=== PATIENT | male | born 1970 | race Caucasian/White ===

== ENCOUNTER 2023-06-17 21:02 | Emergency (ER) | payer BC, SELFPAY ==
[2023-06-17 21:04] VITALS: BP 144/89; BMI 38.2
[2023-06-17 21:05] VITALS: BP 144/89
[2023-06-17 21:14] LABS: Glucose - Point of Care 243 mg/dl (70-99)
[2023-06-17 21:26] LABS: % Basophils 0.1 % (0-2); % Eosinophils 0.4 % (0-6); % Immature Granulocytes 0.7 % (0-0.5); % Lymphocytes 14.9 % (20.5-51.1); % Neutrophils 77.9 % (42.2-75.2); Absolute Immature Granulocytes 0.1 10^3/uL (0-0.05); Absolute Lymphocytes 1.1 10^3/uL (1.2-3.4); Absolute Monocytes 0.4 10^3/uL (0.1-0.6); Absolute Neutrophils 5.7 10^3/uL (1.4-6.5); Hematocrit 28.5 % (39.0-52.0); Hemoglobin 9.8 g/dL (13.0-18.0); Mean Corp Hgb Conc. 34.4 g/dL (33.0-37.0); Mean Corpuscular Hgb 31.2 pg (27.0-31.0); Mean Corpuscular Volume 90.8 fL (80.0-94.0); Mean Platelet Volume 9.6 fL (7.4-10.4); Nucleated Red Blood Cells % 0 % (-); Platelet Count 131 10^3/uL (130-400); Red Blood Cell Count 3.14 10^6/uL (4.70-6.10); Red Cell Dist. Width 13.6 % (11.5-14.5); White Blood Cell Count 7.3 10^3/uL (4.8-10.8)
[2023-06-17 21:39] LABS: ALT (SGPT) < 10 U/L (0-50); AST (SGOT) 24 U/L (17-59); Albumin 2.9 g/dl (3.5-5.0); Alkaline Phosphatase 140 U/L (38-126); Blood Urea Nitrogen 55 mg/dl (9-20); Calcium 7.9 mg/dl (8.4-10.2); Carbon Dioxide 23 mmol/L (22-30); Chloride 101 mmol/L (98-107); Estimated Creatinine Clearance 87 ml/min; Glucose 228 mg/dl (70-99); Potassium 4.9 mmol/L (3.5-5.1); Sodium 129 mmol/L (135-145); Total Bilirubin 0.6 mg/dl (0.2-1.3); Total Protein 6.5 g/dl (6.3-8.2); eGFR > 60.00
[2023-06-17 22:00] VITALS: BP 140/91
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
--- NOTE | 2023-06-17 22:53 | VATNOTE ---
Called by ER to assess Rt. SL PICC, placed last week @ [facility], family unsure the date. Pt. is a resident @ [facility]. Rt. arm appears edematous, recommend US to r/o DVT. Picc redressed per protocol. Flushes easily, but no blood return. Staff
RN made aware. Will follow.
[2023-06-17 23:00] VITALS: BP 129/82
[2023-06-17 23:13] LABS: Urine Albumin 1+ (Neg - Trace); Urine Bilirubin Negative (Negative); Urine Character Clear (Clear); Urine Color Yellow; Urine Glucose Negative (Negative); Urine Ketone Negative (Negative); Urine Leukocyte Trace (Negative); Urine Nitrite Negative (Negative); Urine Occult Blood 2+ (Negative); Urine Urobilinogen Negative (Neg - 1+)
[2023-06-17 23:19] LABS: Urine Granular Cast 0-2 /LPF (0)
[2023-06-17 23:20] LABS: Urine Bacteria Many (Negative)
[2023-06-18 00:36] VITALS: BP 141/94
[2023-06-18 00:46] LABS: Glucose - Point of Care 164 mg/dl (70-99)
[2023-06-18 01:00] VITALS: BP 138/93
[2023-06-18 02:00] VITALS: BP 151/107
== END 2023-06-18 02:23 ==
LOC: EMR 21:02
PROVIDERS: EMERGENCY PHYSICIAN Emergency Medicine; FAMILY PHYSICIAN Family Medicine
DX: E11.649 Type 2 diabetes mellitus with hypoglycemia without coma (principal); R22.31 Localized swelling, mass and lump, right upper limb
CPT/HCPCS: 99285; 70450; 71045; 80053; 81003; 81015; 82962; 85025; 87086; 93005; 93971

== ENCOUNTER 2023-06-21 15:03 | Inpatient (IN) | payer BC, SELFPAY ==
[2023-06-21 09:35] VITALS: BP 136/84
--- NOTE | 2023-06-21 09:36 | ED.GENMED ---
History of Present Illness
General
Chief Complaint: Dizziness
Source: patient
Exam Limitations: none
Time Seen by Provider: 06/21/23 09:34
Nursing documentation reviewed up to this point in time: agreed with
History of Present Illness
History of Present Illness:
Patient is a 52-year-old male who presents from [facility] for dizziness. He reports he has been dizzy for the past 2 weeks. He describes this as feeling lightheaded/weak. Patient feels very tired and reports he has no energy
It is documented the patient has a history of CVA IDDM endocarditis. PICC line in place in his right arm.
Past History
Past History
ED Past Medical History: CVA, IDDM and Other (Endocarditis stroke diabetes hypertension)
Social History
Tobacco: Other
Alcohol: Other
Drug: Other
Personal: Other
Living: [facility]
Employment: Not employed
Review of Systems
Review of Systems
Allergies reviewed?: Yes
Other source history: family
All Other Systems: ROS reviewed and negative except as documented in HPI and ROS
Constitutional: Reports fatigue; Denies fever
Respiratory: Reports no symptoms; Denies trouble breathing
Cardiac: Reports no symptoms
ABD/GI: Reports no symptoms
: Reports no symptoms
Musculoskeletal: Reports no symptoms
Neurological: Reports dizzy; Denies headache, weakness or numbness
Psychiatric: Reports no symptoms
Phy Exam
General Physical Exam
General Presentation: no apparent distress
General age: appears stated age
General Skin: warm and dry
General Habitus: normal
General Mental: alert
General Hydration: appears well hydrated
Cardiovascular Exam
Cardiovascular Exam: regular rate/rhythm, no murmur and normal peripheral pulses
Pulmonary Exam
Pulmonary Exam: lungs clear and no respiratory distress
Neurological Exam
Neurological Exam: alert, oriented x3 and other (right arm is weak ( recent stroke ) right leg appears only minimally weak )
Musculoskeletal Exam
Musculoskeletal Exam: full ROM
Skin Exam
Skin Exam: normal color and warm/dry
Psychiatric Exam
Psychiatric Exam: normal mood/affect
Course
Orders/Labs/Results
Orders:
Orders
06/21/23 09:34
Electrocardiogram (*1) Urgent
Reason for Study: Vertigo / Dizzy
EKG- Treatment ONCE
06/21/23 09:43
CMP [Comprehensive Metabolic Panel] Urgent
Complete Blood Count/With Diff Urgent
Troponin I Urgent
06/21/23 10:28
0.9% Sodium Chloride 1000 ml [Nss] 1,000 ml IV BOLUS
06/21/23 10:59
UA Reflex to Culture [Urinalysis Reflex To Culture] Urgent
Chest X-ray Portable [CR Chest Portable - 1 View] Urgent
Comment:
Reason For Exam: line placement
Reason Study Needs to be Portable: Other
06/21/23 14:39
Admit/Transfer Patient As Directed
Co-Sign Provider:
Level of Care: Inpatient admission
Assign to:: Medical/Surgical
Physician / Group: Bon
Diagnosis: Weakness,lighteadedness and anemia/azotemia
Reason for Hospitalization: See progress note
Expected length of stay greater than two midnights?: Yes
ELOS- Estimated Length of Stay in days: 3
I certify the patient meets the requirements for IP care: Yes
06/21/23 14:41
Code Status As Directed
Resuscitation Status: Full Code
Abnormal Lab Results
06/21/23
09:43
WBC 4.6 L 10^3/uL
(4.8-10.8)
RBC 2.68 L 10^6/uL
(4.70-6.10)
Hgb 8.5 L g/dL
(13.0-18.0)
Hct 24.9 L %
(39.0-52.0)
MCH 31.7 H pg
(27.0-31.0)
Absolute Lymphs (auto) 0.7 L 10^3/uL
(1.2-3.4)
Immature Gran % 0.6 H %
(0-0.5)
Neutrophils % 75.7 H %
(42.2-75.2)
Lymphocytes % 15.7 L %
(20.5-51.1)
Sodium 130 L mmol/L
(135-145)
Carbon Dioxide 21 L mmol/L
(22-30)
BUN 53 H mg/dl
(9-20)
Glucose 164 H mg/dl
(70-99)
Calcium 8.0 L mg/dl
(8.4-10.2)
Alkaline Phosphatase 136 H U/L
(38-126)
Total Protein 6.0 L g/dl
(6.3-8.2)
Albumin 2.6 L g/dl
(3.5-5.0)
06/21/23 09:43
06/21/23 09:43
Vital Signs
Initial and Last Documented VS:
Initial Vital Signs
Temp Pulse Resp BP Pulse Ox
97.6 F 78 16 136/84 97
06/21/23 09:35 06/21/23 09:35 06/21/23 09:35 06/21/23 09:35 06/21/23 09:35
Last Documented Vital Signs
Temp Pulse Resp BP Pulse Ox
97.6 F 70 17 131/89 98
06/21/23 09:35 06/21/23 11:30 06/21/23 11:30 06/21/23 10:05 06/21/23 10:05
MDM/Problems Addressed
Differential Diagnosis Includes:
Not limited to electrolyte abnormality dehydration anemia
MDM/Problems Addressed:
Patient is a 52-year-old male from [facility] with recent history of strokes, endocarditis complaining of weakness. Family at bedside reports patient is getting progressively weaker reports staff finally got him out of bed yesterday. Patient
complains of a total weakness. He denies any recent fever or chills. Denies any chest pain shortness of breath. Patient has a low sodium of 130 and elevated BUN of 53 normal creatinine 1.2. Calcium low at 8.0; hemoglobin low at 8.5 with low
hematocrit 24.9. It does not appear from records that patient is on blood thinners, brown stool rectal exam heme-negative.
Will obtain urine and chest x-ray for confirmation of PICC line. Patient will require admission for weakness anemia hyponatremia hypocalcemia
*Critical Care Note
Total Time (30-74mins, 75-104mins- exclusive of procedures): Not Applicable
ED Attending Note
-
Portions of this chart may have been created with voice recognition software.� Occasional wrong word or��sound alike� substitutions may have occurred due to the inherent limitations of voice recognition software.
Discharge Plan
Departure
Patient Disposition: Admit
Date of Disposition: 06/21/23
Time of Disposition: 11:03
Admit to: Med/Surg
Admit to doctor: hospitalist
Presentation/result/management discussed w/ accepting MD/DO: Hospitalist
Patient with high blood pressure during this ER visit?: Yes
Condition: Fair
Covid-19: Not Applicable
Discharge Problem:
Anemia, Weakness, Acute hyponatremia, hypocalcemia
Interventions
Interventions:
*Risk Screen - Suicide Last Done: 06/21/23 09:35
*General Assessment Last Done: 06/21/23 09:35
*Neglect/Abuse Screening Last Done: 06/21/23 09:35
*ED COVID-19 Vaccine History Last Done: 06/21/23 09:35
ED- Neurological Assessment Last Done: 06/21/23 09:35
ED- Cardiac Assessment Last Done: 06/21/23 10:58
[2023-06-21 09:53] LABS: % Basophils 0.2 % (0-2); % Eosinophils 1.1 % (0-6); % Immature Granulocytes 0.6 % (0-0.5); % Lymphocytes 15.7 % (20.5-51.1); % Monocytes 6.7 % (1.7-9.3); % Neutrophils 75.7 % (42.2-75.2); Absolute Eosinophils 0.1 10^3/uL (0-0.7); Absolute Lymphocytes 0.7 10^3/uL (1.2-3.4); Absolute Monocytes 0.3 10^3/uL (0.1-0.6); Absolute Neutrophils 3.5 10^3/uL (1.4-6.5); Hematocrit 24.9 % (39.0-52.0); Hemoglobin 8.5 g/dL (13.0-18.0); Mean Corp Hgb Conc. 34.1 g/dL (33.0-37.0); Mean Corpuscular Hgb 31.7 pg (27.0-31.0); Mean Corpuscular Volume 92.9 fL (80.0-94.0); Mean Platelet Volume 9.2 fL (7.4-10.4); Nucleated Red Blood Cells % 0 % (-); Platelet Count 137 10^3/uL (130-400); Red Blood Cell Count 2.68 10^6/uL (4.70-6.10); Red Cell Dist. Width 13.5 % (11.5-14.5); White Blood Cell Count 4.6 10^3/uL (4.8-10.8)
[2023-06-21 10:05] VITALS: BP 131/89
[2023-06-21 10:07] LABS: ALT (SGPT) 10 U/L (0-50); AST (SGOT) 22 U/L (17-59); Albumin 2.6 g/dl (3.5-5.0); Alkaline Phosphatase 136 U/L (38-126); Blood Urea Nitrogen 53 mg/dl (9-20); Carbon Dioxide 21 mmol/L (22-30); Chloride 104 mmol/L (98-107); Glucose 164 mg/dl (70-99); Sodium 130 mmol/L (135-145); Total Bilirubin 0.5 mg/dl (0.2-1.3); eGFR > 60.00
[2023-06-21 10:18] LABS: Troponin I 0.027 ng/ml
[2023-06-21] MEDS: NSS 1000 IV ×2 (11:49→16:40)
--- NOTE | 2023-06-21 11:57 | PHANOTE ---
contacted [facility] [phone] for medication list for patient at 11:58
--- NOTE | 2023-06-21 14:47 | HPS.HSE ---
Family Physician
-
Family Physician: Fahad Perdomo
Chief Complaint
-
Weakness, lightheadedness, tiredness
History of Present Illness
52-year-old unfortunate gentleman recently had a infective endocarditis and a secondary stroke leaving him with right-sided weakness. This was 2 and a weeks ago. He was treated at [facility]. He was discharged to rehab past
Sunday.
Ever since discharge he has been progressively getting weaker. He is fatigued. He is also having dizziness especially when he gets up. He is not able to function and participate with PT so he came in here.
He was assisted to the bathroom
For 25 minutes feeling weak and he could not get up and he felt dizzy when he got up in a retirement.
Apparently also tried to get up by himself and he fell beside his bed and could not get up for 45 minutes in the rehab.
The mother also states he has been having loose stools.
Patient denies any nausea or vomiting. No fever or chills. He just feels fatigued. He feels achy everywhere. He has low back pain.
From stroke standpoint there is improvement in the strength in both the right arm and the right leg.
Medical History
Past Medical History
Past Medical History: Reports CVA (Right-sided weakness), HTN, IDDM and Other (Infective endocarditis)
Past Surgical History: Reports None
Social History
Tobacco: Non-smoker
Alcohol: None
Drug: None
Personal:
Living: [facility]hab currently)
Family History
Family History: Not pertinent
Allergies / Home Medications
Allergies reflects when Allergies were last updated in [facility].
Home Medications with original date entered in [facility]
Allergy/Medication List:
Allergies
Allergy/AdvReac Type Severity Reaction Status Date / Time
No Known Allergies Allergy Unverified 06/17/23 21:20
Home Medications
Saccharomyces boulardii 250 mg capsule (Probiotic (S.boulardii)) 250 mg PO TID 06/21/23
acetaminophen 325 mg tablet (Tylenol) 650 mg PO Q6H PRN mild pain/temp>100 06/21/23
acetaminophen 500 mg tablet (Tylenol Extra Strength) 1,000 mg PO Q6H PRN mild pain 06/21/23
bisacodyl 10 mg rectal suppository 10 mg CA DAILY PRN if no results for MOM 06/21/23
carvedilol 6.25 mg tablet 6.25 mg PO BID 06/21/23
cefazolin 2 gram/100 mL in 0.9 % sodium chloride intravenous solution 100 ml IV Q8H 06/21/23
heparin lock flush (porcine) 10 unit/mL intravenous solution 50 unit IV .SEE BELOW 06/21/23
insulin glargine 100 unit/mL subcutaneous solution 25 unit SC DAILY 06/21/23
insulin lispro 100 unit/mL subcutaneous solution 5 unit SC AC 06/21/23
ipratropium 0.5 mg-albuterol 3 mg (2.5 mg base)/3 mL nebulization soln 3 ml inhalation R Q4HPRN PRN wheezing 06/21/23
lisinopril 10 mg tablet 10 mg PO DAILY 06/21/23
magnesium hydroxide 400 mg/5 mL oral suspension (Milk of Magnesia) 30 ml PO HSPRN PRN if no BM x 3 days 06/21/23
sodium chloride 0.9 % (flush) (Normal Saline Flush 0.9 % injection syringe) 10 ml IV .SEE BELOW 06/21/23
Review of Systems
-
A 12 point ROS was completed and negative except as noted: Yes
Physical Exam
Vital Signs
Vital Signs
Temp Pulse Resp BP Pulse Ox
97.6 F 70 17 131/89 98
06/21/23 09:35 06/21/23 11:30 06/21/23 11:30 06/21/23 10:05 06/21/23 10:05
Physical Exam
General: No Apparent Distress
Respiratory: Clear
Cardiac: S1/S2 and Regular Rhythm; No Tachycardia
GI: Soft, Non Tender, Non Distended, Normal Bowel Sounds and Other (Obese)
Neuro: AO x 3; No No Motor Deficits (Right upper extremity 4/5 on right lower extremity 4/5; left side upper and lower 5/5), Slurred Speech or Facial Droop
Psych: Calm; No Confused or Agitated
Laboratory Results
-
06/21/23 09:43
06/21/23 09:43
Laboratory Results
Total Bilirubin 0.5 mg/dl (0.2-1.3) 06/21/23 09:43
AST 22 U/L (17-59) 06/21/23 09:43
ALT 10 U/L (0-50) 06/21/23 09:43
Alkaline Phosphatase 136 U/L (38-126) H 06/21/23 09:43
Troponin I 0.027 ng/ml 06/21/23 09:43
Data Reviewed
-
Lab Data: Labs Reviewed by me
Impression/Plan
-
Weakness, fatigue and orthostatic dizziness-rule out fluid losses from diarrhea, rule out new anemia/bleeding, rule out related to infective endocarditis.
Start on IV fluids
Follow H&H
Check stools for blood, C. difficile, WBC
Check orthostatic blood pressure readings
PT OT eval
Check blood cultures and inflammatory markers
Elevated BUN noted-unclear if this is volume related or bleeding. Follow H&H and stool studies. Support with IV fluids and follow BUN closely.
Infective endocarditis-clinically no heart failure. Continue with his IV antibiotics.
Hyponatremia-concern more for volume depletion related. Check urine sodium and osmolality. Support with fluids and check BMP later today.
Diabetes mellitus type 2-continue with his insulin regimen and add a sliding scale insulin
Hypertension-continue with his home medication
Full code
[2023-06-21 16:34] VITALS: BP 148/95; BP 151/95; PULSE 77; PULSE 78
[2023-06-21 16:39] LABS: Glucose - Point of Care 134 mg/dl (70-99)
[2023-06-21] MEDS: NOVOLOG FLEXPEN 5 UNITS SC (17:19)
[2023-06-21] MEDS: FLORASTOR 250 MG PO ×2 (17:19→22:59)
[2023-06-21] MEDS: NOVOLOG FLEXPEN-LOW RESISTANCE SC (17:19)
[2023-06-21] MEDS: ANCEF 10 IV (17:20)
[2023-06-21 17:44] LABS: Hematocrit 25.1 % (39.0-52.0); Hemoglobin 8.6 g/dL (13.0-18.0)
[2023-06-21] MEDS: COREG 6.25 MG PO (22:59)
[2023-06-21] MEDS: TYLENOL 650 MG PO (22:59)
[2023-06-21 23:17] LABS: Blood Urea Nitrogen 53 mg/dl (9-20); Calcium 7.9 mg/dl (8.4-10.2); Carbon Dioxide 20 mmol/L (22-30); Chloride 102 mmol/L (98-107); Glucose 146 mg/dl (70-99); Potassium 4.7 mmol/L (3.5-5.1); Sodium 131 mmol/L (135-145); eGFR > 60.00
[2023-06-22] MEDS: ANCEF 10 IV ×3 (00:20→15:06)
[2023-06-22] MEDS: FLUSH (NSS) 2 FLUSH IV (00:23)
--- NOTE | 2023-06-22 01:00 | PTCARENOTE ---
pt is aaox3, hx stroke w/ right sided weakness. pt is oriented to room w/ call montoya in reach.
[2023-06-22 01:10] VITALS: BP 147/92; BMI 37.5
[2023-06-22] MEDS: NSS 1000 IV ×3 (01:25→23:17)
[2023-06-22 01:31] LABS: Hematocrit 24.1 % (39.0-52.0); Hemoglobin 8.1 g/dL (13.0-18.0); Mean Corp Hgb Conc. 33.6 g/dL (33.0-37.0); Mean Corpuscular Hgb 31.4 pg (27.0-31.0); Mean Corpuscular Volume 93.4 fL (80.0-94.0); Mean Platelet Volume 8.9 fL (7.4-10.4); Platelet Count 122 10^3/uL (130-400); Red Blood Cell Count 2.58 10^6/uL (4.70-6.10); Red Cell Dist. Width 13.4 % (11.5-14.5); White Blood Cell Count 4.9 10^3/uL (4.8-10.8)
[2023-06-22 04:17] LABS: Erythrocyte Sed Rate 139 mm/hour (0-20)
[2023-06-22 04:31] LABS: Urine Albumin Trace (Neg - Trace); Urine Bilirubin Negative (Negative); Urine Character Clear (Clear); Urine Color Yellow; Urine Glucose Negative (Negative); Urine Ketone Negative (Negative); Urine Leukocyte Trace (Negative); Urine Nitrite Negative (Negative); Urine Occult Blood 1+ (Negative); Urine Specific Gravity 1.015 (<1.030); Urine Urobilinogen Negative (Neg - 1+)
[2023-06-22 04:32] LABS: Osmolality Urine 336 mOsm/kg (300-900)
[2023-06-22 05:00] LABS: Urine Sodium 22 mmol/L (30-90)
[2023-06-22 05:28] VITALS: BMI 37.5
[2023-06-22 06:20] LABS: Urine Amorphous Seen; Urine Squamous Cell 16-20 /LPF (Few)
[2023-06-22 06:21] LABS: Urine Bacteria Moderate (Negative); Urine Yeast Few (Negative)
[2023-06-22 06:23] LABS: Urine Granular Cast 0-2 /LPF (0); Urine White Cell Cast 0-2 /LPF
[2023-06-22 07:23] VITALS: BP 151/94
[2023-06-22 08:17] LABS: Glucose - Point of Care 122 mg/dl (70-99)
[2023-06-22] MEDS: NOVOLOG FLEXPEN-LOW RESISTANCE SC (08:25)
[2023-06-22] MEDS: COREG 6.25 MG PO ×2 (08:46→21:02)
[2023-06-22] MEDS: ZESTRIL 10 MG PO (08:46)
[2023-06-22] MEDS: FLORASTOR 250 MG PO ×3 (08:46→21:02)
[2023-06-22] MEDS: LANTUS 0.25 UNITS SC (08:47)
[2023-06-22 08:53] LABS: Hematocrit 23.4 % (39.0-52.0)
[2023-06-22 09:10] VITALS: BP 151/94; BP 161/103; PULSE 76; PULSE 79
[2023-06-22] MEDS: NOVOLOG FLEXPEN 5 UNITS SC ×3 (09:52→16:33)
--- NOTE | 2023-06-22 10:56 | VATNOTE ---
Patient with RUE PICC that was placed at outside facility. B/l arms with pitting edema noted, but right > left. Discussed with PCN who is in agreement. TigerText sent to Dr. Crockett to make him aware; VAT recommends u/s to rule out clot.
[2023-06-22 11:42] LABS: Glucose - Point of Care 170 mg/dl (70-99)
[2023-06-22 12:00] LABS: Glycohemoglobin (HgbA1c) 11.3 % (4.0-5.6)
[2023-06-22] MEDS: NOVOLOG FLEXPEN-LOW RESISTANCE 1 UNITS SC ×2 (12:04→16:33)
[2023-06-22 15:00] VITALS: BP 162/96
--- NOTE | 2023-06-22 16:17 | W.PN.HOSP.TC ---
Today's Communication/Plan
-
Continue with IV fluids
Follow BUN tomorrow
Follow H&H
Assessment / Plan
Assessment / Plan
Weakness, fatigue and orthostatic dizziness-rule out fluid losses from diarrhea, rule out new anemia/bleeding, rule out related to infective endocarditis.
Improved symptoms with IV fluids. I would continue IV fluids today. He is heme-negative. No diarrhea. C. difficile negative. No WBCs seen in stools. Blood cultures repeat pending. No orthostatic drop in blood pressure so far noted.
Check PT OT eval.
If continued improvement with oral fluids I would start discharge plan.
Patient does not want go back to h his [place] [facility]. Case management to look continue place.
Elevated BUN noted-? volume related .� Urine lites noted. Follow BUN with IV fluid support.
Infective endocarditis-clinically no heart failure.� Continue with his IV antibiotics.
Hyponatremia-concern more for volume depletion related.� urine sodium suggest prerenal.� Support with fluids and check BMP later today.
Diabetes mellitus type 2-poor control with hemoglobin A1c 11.3 continue with his insulin regimen and add a sliding scale insulin. Blood sugars are better here.
Hypertension-continue with his home medication
Normocytic [id number]. Check iron studies.
Full code
Anticipated Discharge: 24 - 48 hours
Subjective/Interval History
-
Date of Service: June 22, 2023
He is feeling improved with IV fluids.
Objective Data
-
Labs:
Laboratory Results
06/22/23
07:46
Hgb 8.0 L
Hct 23.4 L
Vital Signs:
Vital Signs
Temp Pulse Resp BP Pulse Ox
98.3 F 90 16 162/96 98
06/22/23 15:00 06/22/23 15:00 06/22/23 15:00 06/22/23 15:00 06/22/23 15:00
I&O
06/21/23 06/22/23 06/23/23
06:59 06:59 06:59
Intake Total 2159
Output Total 300 / 300
Balance 1859
Review of Systems
-
Constitutional: Denies Fever
EENT: Denies Sore Throat
Respiratory: Denies Cough or Trouble Breathing
Cardiac: Denies Chest Pain
Abdomen/GI: Denies Abdominal Pain, Nausea, Vomiting or Diarrhea
Neuro: Denies Dizzy
Physical Exam
-
General: No Apparent Distress
HEENT: Moist Mucous Membranes
Respiratory: Clear to Auscultation
Cardiac: Regular Rhythm and S1/S2
GI: Soft
Neuro: AO x 3
Psych: Calm
Data Reviewed
-
Labs: Labs Reviewed by me
[2023-06-22 16:22] LABS: Glucose - Point of Care 164 mg/dl (70-99)
[2023-06-22] MEDS: TYLENOL 650 MG PO (18:40)
[2023-06-22 19:55] VITALS: BP 144/97
--- NOTE | 2023-06-22 20:00 | TRANSFER ---
Patient transferred from 2125 into room 337-2 via bed with all belongings accompanied by RN and family member.
[2023-06-22 21:37] LABS: Glucose - Point of Care 111 mg/dl (70-99)
[2023-06-22 23:20] VITALS: BP 119/66
--- NOTE | 2023-06-22 23:47 | PTCARENOTE ---
pt tx from around 1929. pt unable to ambulate, arrived in bed so no transfer necessary. VSS on arrival, NSS running @100ml/hr. no c/o of pain at this time. call montoya within reach, will monitor.
[2023-06-23] MEDS: ANCEF 10 IV ×4 (00:41→23:31)
[2023-06-23 05:07] LABS: Hematocrit 24.9 % (39.0-52.0); Hemoglobin 8.3 g/dL (13.0-18.0); Mean Corp Hgb Conc. 33.3 g/dL (33.0-37.0); Mean Corpuscular Hgb 31.2 pg (27.0-31.0); Mean Corpuscular Volume 93.6 fL (80.0-94.0); Mean Platelet Volume 8.9 fL (7.4-10.4); Platelet Count 144 10^3/uL (130-400); Red Blood Cell Count 2.66 10^6/uL (4.70-6.10); Red Cell Dist. Width 13.4 % (11.5-14.5); White Blood Cell Count 4.8 10^3/uL (4.8-10.8)
[2023-06-23 05:38] LABS: Blood Urea Nitrogen 41 mg/dl (9-20); Carbon Dioxide 21 mmol/L (22-30); Chloride 109 mmol/L (98-107); Estimated Creatinine Clearance 102 ml/min; Glucose 106 mg/dl (70-99); Potassium 4.8 mmol/L (3.5-5.1); Sodium 133 mmol/L (135-145); eGFR > 60.00
[2023-06-23] MEDS: COREG 6.25 MG PO ×2 (07:25→20:43)
[2023-06-23] MEDS: ZESTRIL 10 MG PO (07:25)
[2023-06-23] MEDS: FLORASTOR 250 MG PO ×3 (07:25→21:41)
[2023-06-23 07:35] VITALS: BP 170/109
[2023-06-23] MEDS: NSS 1000 IV (07:42)
[2023-06-23 07:44] LABS: Glucose - Point of Care 118 mg/dl (70-99)
[2023-06-23] MEDS: NOVOLOG FLEXPEN-LOW RESISTANCE SC ×2 (09:53→16:49)
[2023-06-23] MEDS: NOVOLOG FLEXPEN 5 UNITS SC ×3 (09:54→16:48)
[2023-06-23] MEDS: LANTUS 0.25 UNITS SC (09:57)
--- NOTE | 2023-06-23 10:19 | W.PN.HOSP.TC ---
Today's Communication/Plan
-
Follow US Rt UE
PT eval
DC planning
Assessment / Plan
Assessment / Plan
Weakness, fatigue and orthostatic dizziness-suspect fluid losses from diarrhea.
Improved symptoms with IV fluids. Hold further IV fluids. Oral intake adequate /Na much improved.
He is heme-negative. No diarrhea. C. difficile negative. No WBCs seen in stools. Blood cultures repeat neg. No orthostatic drop in blood pressure so far noted.
CW PT OT eval.
Elevated BUN noted-? volume related .� Urine lites noted. Improved BUN with IV fluid support.
Infective endocarditis-clinically no heart failure.� Continue with his IV antibiotics.
Hyponatremia-concern more for volume depletion related.� urine sodium suggest prerenal.� Improved
Diabetes mellitus type 2-poor control with hemoglobin A1c 11.3 continue with his insulin regimen and add a sliding scale insulin. Blood sugars are better here.
Hypertension-continue with his home medication
Normocytic [id number]. Check iron studies.
Rt UE swelling -rule out PICC associated DVT
Full code
DC planning once seen by PT
Anticipated Discharge: Today
Subjective/Interval History
-
Date of Service: June 23, 2023
Patient feeling much improved with IV fluids. He is very eager to work with PT.
Diarrhea has improved.
Tolerating diet.
Denies any pain in the right arm.
Objective Data
-
Labs:
Laboratory Results
06/23/23
04:53
WBC 4.8
Hgb 8.3 L
Hct 24.9 L
Plt Count 144
Sodium 133 L
Potassium 4.8
Chloride 109 H
Carbon Dioxide 21 L
BUN 41 H
Creatinine 1.1
Glucose 106 H
Calcium 8.0 L
Vital Signs:
Vital Signs
Temp Pulse Resp BP Pulse Ox
97.4 F 87 20 170/109 95
06/23/23 07:35 06/23/23 07:35 06/23/23 07:35 06/23/23 07:35 06/23/23 07:35
I&O
06/22/23 06/23/23 06/24/23
06:59 06:59 06:59
Intake Total 2160 / 2160 1140 / 1140
Output Total 300 / 300 800 / 800
Balance 1860 / 1860 340 / 340
Review of Systems
-
Constitutional: Denies Fever
EENT: Denies Sore Throat
Respiratory: Denies Cough or Trouble Breathing
Cardiac: Denies Chest Pain
Neuro: Denies Dizzy
Physical Exam
-
General: No Apparent Distress
HEENT: Moist Mucous Membranes
Respiratory: Clear to Auscultation
Cardiac: Regular Rhythm and S1/S2
GI: Soft
Musculoskeletal: Edema, Right Upper Extrem
Neuro: AO x 3; Negative No Motor Deficits (rt hemiparesis as prior)
Data Reviewed
-
Labs: Labs Reviewed by me
[2023-06-23 10:58] LABS: Reticulocyte Count 2.8 % (0.4-2.8)
[2023-06-23 11:40] VITALS: BP 147/97
[2023-06-23 12:04] VITALS: BP 148/100; BP 159/99
[2023-06-23 12:05] VITALS: BP 148/100; BP 159/99; BP 174/107; PULSE 82; O2SAT 98
[2023-06-23 12:33] LABS: Glucose - Point of Care 157 mg/dl (70-99)
[2023-06-23 12:35] LABS: Iron 46 ug/dl (49-181)
[2023-06-23] MEDS: NOVOLOG FLEXPEN-LOW RESISTANCE 1 UNITS SC (12:37)
[2023-06-23 12:45] LABS: Percent Saturation 18 % (20-50); Total Iron Binding Capacity 248 ug/dl (261-462)
--- NOTE | 2023-06-23 13:09 | CM ---
CM following re: discharge planning.
Reviewed pt's chart, met with pt and spoke to pt's mother to update on discharge plan progress.
Pt is a 52 year old male, admitted with primary dx of Weakness, fatigue and orthostatic dizziness.
Pt reports he lives with parents in a 3SH, 2 steps to enter and stayed on the first floor. Pt reports he ambulates with a walker at baseline. pt reports he has 3 children, from his spouse and spouse helps as needed. Pt reports he can stay
either with his parents and his spouse and a son.
Pt reports he went to [facility] this month and was discharged to [facility] for a short term rehab. Pt reports he will not come back to [facility] because he was not getting help he needs.
PT and OT evaluations noted - acute level of rehab recommended. CM discussed it with pt and his mother, [place] [facility] preferred. A referral to [place] [facility] made.
PT will need PM&R evaluation and a consult requested.
D/C plan: [place] [facility].
CM will follow with discharge plan updates as hospitalization progresses
[2023-06-23 15:45] VITALS: BP 157/96
[2023-06-23 16:46] LABS: Glucose - Point of Care 126 mg/dl (70-99)
[2023-06-23 21:49] LABS: Glucose - Point of Care 115 mg/dl (70-99)
[2023-06-23 23:00] VITALS: BP 159/99
[2023-06-23] MEDS: TYLENOL 650 MG PO (23:36)
[2023-06-24 00:37] VITALS: BP 159/99
[2023-06-24 07:00] VITALS: BP 134/87
[2023-06-24 08:13] LABS: Glucose - Point of Care 131 mg/dl (70-99)
[2023-06-24] MEDS: NOVOLOG FLEXPEN 5 UNITS SC ×3 (08:41→17:42)
[2023-06-24] MEDS: LANTUS 0.25 UNITS SC (08:42)
[2023-06-24] MEDS: NOVOLOG FLEXPEN-LOW RESISTANCE SC ×2 (08:42→12:32)
[2023-06-24] MEDS: FLORASTOR 250 MG PO ×3 (08:48→21:39)
[2023-06-24] MEDS: ANCEF 10 IV ×3 (08:48→23:30)
[2023-06-24] MEDS: ZESTRIL 10 MG PO (08:48)
[2023-06-24] MEDS: COREG 6.25 MG PO ×2 (08:48→21:39)
[2023-06-24 11:09] VITALS: BP 142/96; BP 175/106; PULSE 79; O2SAT 97
[2023-06-24 11:10] VITALS: BP 142/96; PULSE 81; O2SAT 97
[2023-06-24 12:12] LABS: Glucose - Point of Care 110 mg/dl (70-99)
--- NOTE | 2023-06-24 14:44 | W.PN.HOSP.TC ---
Today's Communication/Plan
-
Left shoulder xray
DC planning
Assessment / Plan
Assessment / Plan
Weakness, fatigue and orthostatic dizziness-suspect fluid losses from diarrhea.
Improved symptoms with IV fluids. Off of IV fluids . Oral intake adequate /Na much improved.
He is heme-negative. No diarrhea. C. difficile negative. No WBCs seen in stools. Blood cultures repeat neg. No orthostatic drop in blood pressure so far noted.
CW PT OT eval.
Elevated BUN noted-? volume related .� Urine lites noted. Improved BUN with IV fluid support.
Infective endocarditis-clinically no heart failure.� Continue with his IV antibiotics.
Hyponatremia-concern more for volume depletion related.� urine sodium suggest prerenal.� Improved
Diabetes mellitus type 2-poor control with hemoglobin A1c 11.3 continue with his insulin regimen and add a sliding scale insulin. Blood sugars are better here.
Hypertension-continue with his home medication
Normocytic [id number]-[id number]. Check iron studies.
Rt UE swelling -
US of arm shows
PICC line bandage obscures full visualization of the cephalic, brachial, basilic veins.
Stable occlusive thrombus in the forearm cephalic vein and antecubital fossa - since superficial veins, will hold on AC and repeat US in one week and AC if progressive
No other right upper extremity venous thrombus.
Left shoulder pain - check Xray
Full code
DC planning
Anticipated Discharge: Within 24 hours
Subjective/Interval History
-
Date of Service: June 24, 2023
Feeling improved from weakness and fatigue standpoint.
Today when she was working with PT he had left shoulder pain. He had a fall in the rehab but not sure if he had a direct impact to the shoulder.
Objective Data
-
Vital Signs:
Vital Signs
Temp Pulse Resp BP Pulse Ox
97.4 F 74 18 134/87 97
06/24/23 07:00 06/24/23 08:48 06/24/23 07:00 06/24/23 08:48 06/24/23 07:00
I&O
06/23/23 06/24/23 06/25/23
06:59 06:59 06:59
Intake Total 1140 / 1140 720 / 720 480 / 480
Output Total 800 / 800 875 / 875 525 / 525
Balance 340 / 340 -155 / -155 -45 / -45
Review of Systems
-
Constitutional: Denies Fever or Chills
EENT: Denies Sore Throat
Respiratory: Denies Cough or Trouble Breathing
Cardiac: Denies Chest Pain
Abdomen/GI: Denies Nausea, Vomiting, Diarrhea or Anorexia (Good appetite)
Neuro: Denies Dizzy
Physical Exam
-
HEENT: Moist Mucous Membranes
Respiratory: Clear to Auscultation
Cardiac: Regular Rhythm and S1/S2
GI: Soft
Neuro: AO x 3; Negative No Motor Deficits (Right hemiparesis as before)
[2023-06-24 15:00] VITALS: BP 150/96
[2023-06-24] MEDS: TYLENOL 650 MG PO ×2 (15:44→21:44)
[2023-06-24 17:17] LABS: Glucose - Point of Care 231 mg/dl (70-99)
[2023-06-24] MEDS: NOVOLOG FLEXPEN-LOW RESISTANCE 2 UNITS SC (17:43)
[2023-06-24 21:38] LABS: Glucose - Point of Care 196 mg/dl (70-99)
[2023-06-24 23:25] VITALS: BP 159/101
[2023-06-25 07:00] VITALS: BP 156/100
[2023-06-25 07:50] LABS: Glucose - Point of Care 103 mg/dl (70-99)
[2023-06-25] MEDS: LANTUS 0.25 UNITS SC (08:42)
[2023-06-25] MEDS: ANCEF 10 IV ×3 (08:43→23:34)
[2023-06-25] MEDS: NOVOLOG FLEXPEN 5 UNITS SC ×3 (08:43→18:12)
[2023-06-25] MEDS: NOVOLOG FLEXPEN-LOW RESISTANCE SC ×3 (08:43→18:12)
[2023-06-25] MEDS: FLORASTOR 250 MG PO (08:43)
[2023-06-25] MEDS: SENOKOT-S 1 TABLET PO (08:44)
[2023-06-25] MEDS: LIDOCAINE 4% PATCH 1 PATCH TOPICAL (08:44)
[2023-06-25] MEDS: COREG 6.25 MG PO ×2 (08:44→20:49)
[2023-06-25] MEDS: ZESTRIL 10 MG PO (08:44)
[2023-06-25] MEDS: MILK OF MAGNESIA 30 ML PO (08:44)
[2023-06-25 09:30] LABS: Blood Urea Nitrogen 38 mg/dl (9-20); Calcium 8.1 mg/dl (8.4-10.2); Carbon Dioxide 19 mmol/L (22-30); Chloride 104 mmol/L (98-107); Estimated Creatinine Clearance 112 ml/min; Glucose 158 mg/dl (70-99); Potassium 4.5 mmol/L (3.5-5.1); Sodium 134 mmol/L (135-145); eGFR > 60.00
--- NOTE | 2023-06-25 11:43 | W.PN.HOSP.TC ---
Addendum entered and electronically signed by Joey Granado MD 06/25/23 16:02:
updated spouse over the phone in complete details. Spouse frustrated with patient care Rudi received at previous hospital and at shelter facility prior to arrival here.
Original Note:
Today's Communication/Plan
-
PM&R eval
Bowel regimen
OOB/PT
Assessment / Plan
Assessment / Plan
Weakness, fatigue and orthostatic dizziness-suspect fluid losses from diarrhea.
Improved symptoms with IV fluids. Off of IV fluids . Oral intake adequate /Na much improved.
He is heme-negative. No diarrhea. C. difficile negative. No WBCs seen in stools. Blood cultures repeat neg.
CW PT OT eval- acute rehab
Na at 134.
Elevated BUN noted-? volume related .� Urine lites noted. Improved BUN with IV fluid support.
Infective endocarditis-clinically no heart failure.� Continue with his IV antibiotics.
Hyponatremia-concern more for volume depletion related.� urine sodium suggest prerenal.� Improved
Diabetes mellitus type 2-poor control with hemoglobin A1c 11.3 continue with his insulin regimen and add a sliding scale insulin. Blood sugars are better here. POC 103 am.
Constipation-bowel regimen added
Hypertension-continue with his home medication
Normocytic eyyfkh-fuye-nteryzpt. Hgb 8.3
Rt UE swelling -
US of arm shows
PICC line bandage obscures full visualization of the cephalic, brachial, basilic veins.
Stable occlusive thrombus in the forearm cephalic vein and antecubital fossa - since superficial veins, will hold on AC and repeat US in one week and AC if progressive
No other right upper extremity venous thrombus.
Left shoulder pain - xray noted- No acute fracture.
Full code
DC planning . PM&R consulted.
Anticipated Discharge: Within 24 hours
Subjective/Interval History
-
Date of Service: June 25, 2023
states of constipation
no abd pain or nausea or vomiting
Objective Data
-
Labs:
Laboratory Results
06/25/23
08:57
Sodium 134 L
Potassium 4.5
Chloride 104
Carbon Dioxide 19 L
BUN 38 H
Creatinine 1.0
Glucose 158 H
Calcium 8.1 L
Vital Signs:
Vital Signs
Temp Pulse Resp BP Pulse Ox
97.7 F 75 18 156/100 99
06/25/23 07:00 06/25/23 08:44 06/25/23 07:00 06/25/23 08:44 06/25/23 07:00
I&O
06/24/23 06/25/23 06/26/23
06:59 06:59 06:59
Intake Total 720 / 720 1200 / 1200
Output Total 875 / 875 1225 / 1225
Balance -155 / -155 -25 / -25
Physical Exam
-
HEENT: Moist Mucous Membranes
Respiratory: Clear to Auscultation
Cardiac: Regular Rhythm and S1/S2
GI: Soft, Nontender, Nondistended and Normal Bowel Sounds
Genito-urinary: Deferred by me
Musculoskeletal: No Edema
Neuro: Awake and AO x 3; Negative No Motor Deficits (Right hemiparesis as before)
Psych: Calm
[2023-06-25 11:52] LABS: Glucose - Point of Care 114 mg/dl (70-99)
--- NOTE | 2023-06-25 11:56 | CM ---
Chart reviewed. Spoke with pt at bedside
PM&R consulted - recommendations pending
Pt reports no preference [facility] or [facility]
Spoke with [facility] Liaison made aware - will follow for needs
Plan - pending PM&R consult
--- NOTE | 2023-06-25 12:21 | WOUNDNOTE ---
L FOOT AND TOES
--- NOTE | 2023-06-25 12:22 | WOUNDNOTE ---
WON RN note: Patient admitted with anemia, acute hyponatremia and hypocalcemia.
See H&P for complete history. From [facility].
PMH: IDDM,CVA -R sided weakness, HTN, UTI, RF and pneumonia.
Wound Location and type/assessment: Patient admitted with: Dry intact cluster of scabs on L leg and tiny scabs on feet. Patient can lift R arm but no strength in it states patient. Ambulated to BR with assist he states. + palpable pedal pulses,
unable to get compression stockings on he states. Patient states he has neuropathy in lower legs/feet. Can turn self to R side, sacrum and heels are intact.
Appetite: Good.
Pressure redistribution devices in place: On versa care air. Pillow placed under calves.
Plan: Will order mineral oil for legs and feet. Recommend leg elevation.
Will confirm orders with hospitalist and updated nurse Caitlin.
Updated care plan and will follow as needed.
Note to case management of equipment requested for discharge:
Recommend follow up at wound care center upon discharge.
[2023-06-25 13:00] VITALS: BP 162/104; BP 177/107
[2023-06-25 13:02] VITALS: BP 162/104; BP 177/107
[2023-06-25] MEDS: MIRALAX 17 GRAMS PO (13:33)
[2023-06-25 13:45] VITALS: BP 134/93
[2023-06-25 15:00] VITALS: BP 156/98
--- NOTE | 2023-06-25 16:35 | CON.MR ---
Consultation
Consultation Request
Date/Time Consultation Performed: 06/25/23 1600
Performing Provider: Dr. Rocha
Reason for Consultation: Recent CVA, R weakness, deconditioning
Medical History
-
Chief Complaint: R weakness, fatigue
History of Present Illness:
I had the opportunity to see Rudi Puga in rehabilitation consultation. This is a 52-year-old gentleman who recently had infective endocarditis and a secondary stroke leaving him with right-sided weakness a couple weeks ago, treated at [facility].� He was discharged to rehab past Sunday. While on rehab he feels he has been progressively getting weaker, fatigued, dizziness especially when he gets up.� Apparently also tried to get up by himself in the rehab unit and he
fell beside his bed and could not get up for 45 minutes in the rehab.
Patient seen at bedside this afternoon . No complaints of pain, still with weakness in the RUE>LE. No numbness or other pain. Still some dizziness with movements and when out of bed in the chair and with therapy. No headache, denies any vision
changes or double vision. No nausea today. Still feels quite fatigued but getting better. After admission noted with hyponatremia, but improving.
Past Medical History
CVA (Right-sided weakness), HTN, IDDM and Infective endocarditis
Past Surgical History: Reports None
Social History
Tobacco: Non-smoker
Alcohol: None
Drug: None
Personal:
Living: Lives with in 2SH
Family History
Family History: Not pertinent
Social History
Functional Level Premorbidity:
Independent for all activities.
Current Funct Level: Ambulation, Transfer, UE/LE Dressing:
Min to Mod A x1 and Min A for ambulation
Living: With Family
Number of Floors: 1
# Steps to Enter: 3
Potential First Floor Set Up: Yes
Allergies / Home Medications
Allergy/AdvReac Type Severity Reaction Status Date / Time
No Known Allergies Allergy Unverified 06/17/23 21:20
Medication Instructions Recorded Confirmed Last Taken Type
Saccharomyces boulardii 250 mg 250 mg PO TID Gastrointestinal 06/21/23 06/21/23 Unknown History
capsule (Probiotic (S.boulardii)) Issue
acetaminophen 325 mg tablet 650 mg PO Q6H PRN mild 06/21/23 06/21/23 Unknown History
(Tylenol) pain/temp>100
acetaminophen 500 mg tablet 1,000 mg PO Q6H PRN mild pain 06/21/23 06/21/23 Unknown History
(Tylenol Extra Strength)
bisacodyl 10 mg rectal suppository 10 mg DC DAILY PRN if no results 06/21/23 06/21/23 Unknown History
for MOM
carvedilol 6.25 mg tablet 6.25 mg PO BID Blood Pressure 06/21/23 06/21/23 Unknown History
cefazolin 2 gram/100 mL in 0.9 % 100 ml IV Q8H Infection 06/21/23 06/21/23 Unknown History
sodium chloride intravenous
solution
heparin lock flush (porcine) 10 50 unit IV .SEE BELOW 06/21/23 06/21/23 Unknown History
unit/mL intravenous solution
insulin glargine 100 unit/mL 25 unit SC DAILY Diabetes 06/21/23 06/21/23 Unknown History
subcutaneous solution
insulin lispro 100 unit/mL 5 unit SC AC Diabetes 06/21/23 06/21/23 Unknown History
subcutaneous solution
ipratropium 0.5 mg-albuterol 3 mg 3 ml inhalation R Q4HPRN PRN 06/21/23 06/21/23 Unknown History
(2.5 mg base)/3 mL nebulization wheezing
soln
lisinopril 10 mg tablet 10 mg PO DAILY Blood Pressure 06/21/23 06/21/23 Unknown History
magnesium hydroxide 400 mg/5 mL 30 ml PO HSPRN PRN if no BM x 3 06/21/23 06/21/23 Unknown History
oral suspension (Milk of Magnesia) days
sodium chloride 0.9 % (flush) 10 ml IV .SEE BELOW 06/21/23 06/21/23 Unknown History
(Normal Saline Flush 0.9 %
injection syringe)
Review Of Systems
-
History Source: Patient
All other systems: Negative unless noted
Constitutional: Reports Fatigue
Eye: Reports No Symptoms
EENT: Reports No Symptoms
Respiratory: Reports No Symptoms
Cardiac: Reports No Symptoms
Abdomen/GI: Reports No Symptoms
: Reports No Symptoms
Musculoskeletal: Reports Muscle Pain
Integumentary: Reports No Symptoms
Neurological: Reports Weakness
Psych: Reports No Symptoms
Endocrine: Reports No Symptoms
Hematologic/Lymphatic: Reports No Symptoms
Immunology: Reports No Symptoms
Physical Exam
Active Medications
Generic Name Dose Route Start Last Admin
Trade Name Freq PRN Reason Stop Dose Admin
Acetaminophen 650 mg 06/21/23 16:03 06/24/23 21:44
Acetaminophen 325 Mg Tablet PO 07/19/23 16:02 650 mg
Q6HPRN PRN Administration
mild pain/temp>100
Albuterol/Ipratropium 3 ml 06/21/23 16:03
Ipratropium 0.5/Albuterol 3 Mg (3 Ml Ampul) INH 07/19/23 16:02
R Q4HPRN PRN
wheezing
Protocol
Bisacodyl 10 mg 06/21/23 16:03
Bisacodyl 10 Mg Rectal Suppository RECTAL 07/19/23 16:02
DAILYPRN PRN
if no results for MOM
Carvedilol 6.25 mg 06/21/23 20:00 06/25/23 08:44
Carvedilol 6.25 Mg Tablet PO 07/19/23 19:59 6.25 mg
BID RELL Administration
Dextrose 12.5 grams 06/21/23 16:03
Dextrose 50% (0.5 Grams/Ml) 50 Ml Syringe IV 07/19/23 16:02
[id number] PRN
hypoglycemia
Protocol
Emollient Ointment 0 applic 06/26/23 08:00
Petrolatum/Mineral Oil (Hydrophor) Oint 100 Gram TOPICAL 07/24/23 07:59
DAILY RELL
Glucagon 1 mg 06/21/23 16:03
Glucagon 1 Mg Vial IM 07/19/23 16:02
PRN PRN
hypoglycemia
Protocol
Heparin Sodium (Porcine) 500 unit 06/21/23 16:36
Heparin Flush Pf (100 Unit/Ml) 5 Ml Syringe IV 07/19/23 16:35
PRN PRN
PORT ACCESS
Insulin Glargine 25 units/ 0.25 mls @ 0 mls/hr 06/22/23 08:00 06/25/23 08:42
Device SC 07/20/23 07:59 0.25 mls
DAILY RELL Administration
As Directed
Cefazolin Sodium 2 grams in 10 mls @ 120 mls/hr 06/21/23 17:00 06/25/23 08:43
Ancef IV 10 mls
Q8 RELL Administration
Insulin Aspart 5 units 06/21/23 16:30 06/25/23 11:55
Insulin Aspart (100 Units/Ml) 3 Ml Flexpen SC 07/19/23 16:29 5 units
AC RELL Administration
Insulin Aspart 0 units 06/21/23 16:30 06/25/23 11:55
Insulin Aspart Low Resistance 300 Units/3 Ml Pen.Injctr SC 07/19/23 16:29 Not Given
AC RELL
Protocol
Lidocaine 1 patch 06/25/23 08:15 06/25/23 08:44
Lidocaine 4% Topical Patch TOPICAL 07/23/23 08:14 1 patch
DAILY RELL Administration
Lisinopril 10 mg 06/22/23 08:00 06/25/23 08:44
Lisinopril 10 Mg Tablet PO 07/20/23 07:59 10 mg
DAILY RELL Administration
Magnesium Hydroxide 30 ml 06/21/23 16:03
Milk Of Magnesia 30 Ml Cup PO 07/19/23 16:02
HSPRN PRN
if no BM x 3 days
Patch Removal 0 patch 06/25/23 20:00
Remove Lidocaine Patch REMOVE 07/23/23 19:59
DAILY@2000 RELL
Polyethylene Glycol 17 grams 06/25/23 20:00
Polyethylene Glycol Powder 17 Grams Packet PO 07/23/23 19:59
BID RELL
Saccharomyces Boulardii 250 mg 06/26/23 08:00
Saccharomyces Boulardi (Florastor) 250 Mg Capsule PO 07/24/23 07:59
DAILY RELL
Senna/Docusate Sodium 1 tablet 06/25/23 20:00
Docusate W/Senna (Gissell-Colace) Tablet PO 07/23/23 19:59
BID RELL
Sodium Chloride 0 flush 06/21/23 17:00 06/22/23 00:23
Sodium Chloride 0.9% (Flush) Syringe IV 07/19/23 16:59 2 flush
PER PROTOCOL RELL Administration
Vital Signs
Temp Pulse Resp BP Pulse Ox
98.3 F 80 18 156/98 98
06/25/23 15:00 06/25/23 15:00 06/25/23 15:00 06/25/23 15:00 06/25/23 15:00
Height 5 ft 11 in
Actual Weight 121.88 kg
Body Mass Index (BMI) 37.5
Physical Exam
Physical Exam:
General Appearance/Observation: Well-developed, well-nourished individual in no apparent distress.
Pain/Comfort Assessment: Denies
Mood/Affect: Appropriate
Eyes: Conjunctiva/Lids: normal Pupils: pupils equal round and reactive to light and Accommodation, no nystagmus with movements, no dizziness or vertigo.
Ears/Nose/Throat: oral mucosa moist, throat clear. Lips/Teeth/Gums: normal
Neck: No muscle spasm or tenderness
Cardiovascular: Heart: regular, no murmur
Pulses: dorsalis pedis 2+ bilaterally
Respiratory: Respiratory Effort/Chest Expansion: normal Auscultation: Clear to auscultation bilaterally
Gastrointestinal: abdomen not tender, no distension, normal abdominal bowel sounds
Extremities: Edema: trace bilateral lower limbs, no calf tenderness Cyanosis: None Trophic changes: None
Neurology Exam:
Orientation: Alert, Oriented to self, Time, Place
Memory: Intact immediately and at 3 minutes
Higher cortical function
Speech: Intact
Repetition: Intact
Comprehension: Intact
Two step command: Intact
Naming: Intact
Cranial Nerves:
CNII: Pupillary light reflex: Intact Visual Field: Intact
CN III, IV, : Extraocular muscles: Intact
CN V: Facial Sensation at Forehead: Intact , Maxilla: Intact, Mandible: Intact
CN VII: Facial movement: Symmetric
CN VIII: Hearing: Normal
CN IX/X: Speech & swallow: Normal, Position of Uvula: Midline
CN XI: Shoulder shrug: Symmetric
CN XII: Tongue protrusion: Midline
Sensory:
Light touch: Intact in bilateral upper and lower extremities - denies any asymmetry
Reflexes:
Babinski: Downgoing on left, slight positive on right
Clonus: None
Calin: Positive on right
Cerebellar: Dysmetria/Ataxia: Right weakness, ataxia and apraxia
Musculoskeletal:
Motor: (Manual muscle scale 0-5)
Muscle SA EF WE EE FF FA HF KE DF EHL PF
Right 2 3 3 3 3 2 4 5 5 5 5
Left 5 5 5 5 5 5 5 5 5 5 5
Tone: Normal in all extremities
Range of Motion: Passively within normal limits in all extremities
Lab Results
06/23/23 04:53
06/25/23 08:57
WBC 4.8 10^3/uL (4.8-10.8) 06/23/23 04:53
Hgb 8.3 g/dL (13.0-18.0) L 06/23/23 04:53
Hct 24.9 % (39.0-52.0) L 06/23/23 04:53
MCV 93.6 fL (80.0-94.0) 06/23/23 04:53
Plt Count 144 10^3/uL (130-400) 06/23/23 04:53
ESR 139 mm/hour (0-20) H 06/22/23 01:25
Sodium 134 mmol/L (135-145) L 06/25/23 08:57
Potassium 4.5 mmol/L (3.5-5.1) 06/25/23 08:57
Chloride 104 mmol/L (98-107) 06/25/23 08:57
Carbon Dioxide 19 mmol/L (22-30) L 06/25/23 08:57
BUN 38 mg/dl (9-20) H 06/25/23 08:57
Creatinine 1.0 mg/dL (0.7-1.3) 06/25/23 08:57
eGFR > 60.00 06/25/23 08:57
Glucose 158 mg/dl (70-99) H 06/25/23 08:57
Hemoglobin A1c 11.3 % (4.0-5.6) H 06/22/23 01:25
Calcium 8.1 mg/dl (8.4-10.2) L 06/25/23 08:57
Total Bilirubin 0.5 mg/dl (0.2-1.3) 06/21/23 09:43
AST 22 U/L (17-59) 06/21/23 09:43
ALT 10 U/L (0-50) 06/21/23 09:43
Alkaline Phosphatase 136 U/L (38-126) H 06/21/23 09:43
C-Reactive Protein 49.40 mg/L (0.0-10.00) H 06/22/23 01:25
Total Protein 6.0 g/dl (6.3-8.2) L 06/21/23 09:43
Albumin 2.6 g/dl (3.5-5.0) L 06/21/23 09:43
Diagnostic Results
As per HPI.
Comorbidities / Impairment Group
Comorbidities:
Endocarditis, hyponatremia, HTN, DM
Impairment Group:
CVA, Right hemiparesis
Assessment / Plan
Plan
Assessment:
52 year old male with recent CVA, right hemiparesis due to endocarditis, readmitted with increased fatigue, deconditioning, hyponatremia
PM&R PT/OT to increase independence with ADLs, improve balance, coordination, endurance, strength, mobility, community reintegration, decreased burden of care on others and family education.
CVA: Secondary prophylaxis with blood pressure control (SBP less than 180 and diastolic less than 100 to participate with therapy for ischemic stroke). Continue to monitor neurologic status.
Right hemiparesis: High risk for falls and sliding out of chair/bed. Safety reinforced. RUE worse than RLE
- Avoid using affected arm to help lift or pull patient as this will cause trauma to the shoulder.
HTN: continue medications, monitor closely
Endocarditis : s/p antibiotics.
DM II: Accu-Cheks, insulin sliding scale, lispro, lantus.
Hyponatremia - Improving continue to follow
Psych: Psychology consult. Monitor mood, adjust medications as needed.
Skin: monitor for pressure sores/rashes/lesions.
Pain: acetaminophen or oxycodone as needed.
Bowel: Colace and Senna, PRN bisacodyl.
DVT Prophylaxis: Heparin SQ
Pulmonary: Incentive spirometry
Safety: Continue to reinforce assistance with all transfers.
Code Status: Full code
Dispo (date/plan/equipment needs): Eventual Home with family care. Social history reviewed.
Functional and Medical Goals: Modified Independent with ADL�s, ambulation, transfers
Summary
-
Things that must be addressed in Hospital prior to discharge:
1. Please continue PT/OT.
2. Please consult speech.
3. Blood pressure must be less than 180 systolic and 100 diastolic for 24 hours before being stable for transfer to SNF/acute rehab.
4. Please give blood pressure parameters.
5. Please comment on dvt chemoprophylaxis restrictions.
Discharge Destination: acute rehab
Summary of recommendations:
- Discharge Destination: acute rehab - given the right weakness that persists, worsened deconditioning after going to previous SNF facility. With goals of independent with mobility and ADLs prior to discharge home again with family.
Thank you for allowing me to care for your patient. Please contact me with any questions or concerns.
Data Reviewed
-
Labs: Labs Reviewed by me
Comments
-
This note was dictated using a voice recognition system. Please excuse any typographical errors from supervisor screen printing. If you believe there are any discrepancies, please notify our office.
[2023-06-25 17:04] LABS: Glucose - Point of Care 69 mg/dl (70-99)
[2023-06-25 17:19] LABS: Glucose - Point of Care 64 mg/dl (70-99)
[2023-06-25 17:44] LABS: Glucose - Point of Care 83 mg/dl (70-99)
[2023-06-25] MEDS: SENOKOT-S PO (20:48)
[2023-06-25] MEDS: MIRALAX PO (20:48)
[2023-06-25] MEDS: TYLENOL 650 MG PO (20:49)
[2023-06-25 21:37] LABS: Glucose - Point of Care 159 mg/dl (70-99)
[2023-06-25 23:10] VITALS: BP 135/90
[2023-06-26 07:36] VITALS: BP 151/96
[2023-06-26 07:59] LABS: Glucose - Point of Care 98 mg/dl (70-99)
[2023-06-26] MEDS: NOVOLOG FLEXPEN-LOW RESISTANCE SC ×2 (07:59→12:37)
[2023-06-26] MEDS: LANTUS 0.25 UNITS SC (08:00)
[2023-06-26] MEDS: ANCEF 10 IV (08:01)
[2023-06-26] MEDS: FLORASTOR 250 MG PO (08:02)
[2023-06-26] MEDS: COREG 6.25 MG PO (08:03)
[2023-06-26] MEDS: ZESTRIL 10 MG PO (08:03)
[2023-06-26] MEDS: SENOKOT-S 1 TABLET PO (08:03)
[2023-06-26] MEDS: MIRALAX 17 GRAMS PO (08:04)
[2023-06-26] MEDS: LIDOCAINE 4% PATCH 1 PATCH TOPICAL (08:04)
[2023-06-26] MEDS: NOVOLOG FLEXPEN 5 UNITS SC ×2 (08:25→12:08)
[2023-06-26] MEDS: HYDROPHOR 1 APPLIC TOPICAL (08:26)
--- NOTE | 2023-06-26 09:50 | PN.CDI ---
CDI
- -
CDI:
Physician Documentation Request
Admit Date: 06/21/23 15:03
Dear Doctor Vannesa,
Patient admitted for diarrhea.
ED Physician Documentation: 'patient has a history of CVA IDDM endocarditis. PICC line in place in his right arm.'
06/25 Hospitalist PN: 'Stable occlusive thrombus in the forearm cephalic vein and antecubital fossa'
Please clarify the relationship between these conditions:
Yes, thrombus is related to/associated with/due to PICC line.
No, thrombus is not related to/associated with/due to PICC line.
Unable to determine
Use of terms such as suspected, likely, concern for, or probable (associated with a specific diagnosis that is being evaluated, monitored, or treated as if it exists) are acceptable and can be coded in the inpatient setting, when documented at the
time of discharge.
Thank you,
Madina Lazaro RN, BSN
CDI Specialist
Available via [place] text
Please use your independent medical judgment in providing your response.
--- NOTE | 2023-06-26 10:08 | PN.CDI ---
CDI
- -
CDI:
Physician Documentation Request
Admit Date: 06/21/23 15:03
Dear Doctor Vannesa,
Patient admitted for diarrhea.
06/22 Vascular Access Team Note: 'Patient with RUE PICC that was placed at outside facility. B/l arms with pitting edema noted, but right > left.'
06/25 Hospitalist PN: 'Stable occlusive thrombus in the forearm cephalic vein and antecubital fossa - since superficial veins, will hold on AC and repeat US in one week and AC if progressive'
Clarify which of the following accurately represents the acuity of the thrombus. Possible options might include:
Acute
Chronic
Other
Use of terms such as suspected, likely, concern for, or probable (associated with a specific diagnosis that is being evaluated, monitored, or treated as if it exists) are acceptable and can be coded in the inpatient setting, when documented at the
time of discharge.
Thank you,
Madina Lazaro RN, BSN
CDI Specialist
Available via [place] text
Please use your independent medical judgment in providing your response.
--- NOTE | 2023-06-26 11:36 | CM ---
Addendum entered by Yeimi Hatch 06/26/23 13:48:
Spoke with Rafael from [facility]
Approved for AIR
Auth # [id number]
1st review 07/02/23
Phone - [phone]
Spoke with Rafael at [facility] auth #
Pt and his mother Lisa willoughby
Plan - Transfer to [facility]
Phone - [phone]
Fax - kpk - [phone]
Addendum entered by Yeimi Hatch 06/26/23 11:47:
Pt receiving Ancef 2 Grams q8 hrs
Will remain on medication until 07/17/23
Spoke with Sophie at [facility] for pricing when d/c'ed
With insurance Pt will have a $3200 deductible, once met medication covered 100%
Original Note:
For [facility] rehab when medically ready
Called [employer] to obtain auth
Auth pending
Plan - [facility] at d/c
[2023-06-26 12:21] LABS: Glucose - Point of Care 149 mg/dl (70-99)
--- NOTE | 2023-06-26 12:27 | W.PN.HOSP.TC ---
Today's Communication/Plan
-
monitor POC
BP controlled
IV abx till 07/17
Obrien placement
Assessment / Plan
Assessment / Plan
Weakness, fatigue and orthostatic dizziness-suspect fluid losses from diarrhea.
Improved symptoms with IV fluids. Off of IV fluids . Oral intake adequate /Na much improved.
He is heme-negative. No diarrhea. C. difficile negative. No WBCs seen in stools. Blood cultures repeat neg.
CW PT OT eval- acute rehab
Na at 134.
Elevated BUN noted-? volume related .� Urine lites noted. Improved BUN with IV fluid support.
Infective endocarditis-clinically no heart failure.� Continue with his IV antibiotics Cefazolin. per OSH records last day of abx 07/17/23. (Start date 06/05/23). Blood cultures are negative here. Pt was evaluated by CTS at [place]-no indication for
surgery.
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
multiple foci in both frontal lobes. Diffusion with MRA of the head and neck was unremarkable.
Chronic HFrEF- TTE showed 20-25% . ANDREW showed EF 40-45% and vegetation measures 3.2 x 2.9 mm and is attached to the left portion of the anterior leaflet of the biscuspid valve. Cont coreg, lisinopril.
Hyponatremia-concern more for volume depletion related.� urine sodium suggest prerenal.� Improved
Diabetes mellitus type 2-poor control with hemoglobin A1c 11.3 continue with his insulin regimen and add a sliding scale insulin. POC 98 am.
Constipation-bowel regimen added
Hypertension-continue with his home medication
Normocytic abpnxa-kgqn-cghlaalk. Hgb 8.3
Rt UE swelling 2/2 superficial vein thrombus-unclear chronicity as coming from rehab and was at OSH.
US of arm shows
PICC line bandage obscures full visualization of the cephalic, brachial, basilic veins.
Stable occlusive thrombus in the forearm cephalic vein and antecubital fossa - since superficial veins, will hold on AC.
No other right upper extremity venous thrombus.
Left shoulder pain - xray noted- No acute fracture.
Full code
DC planning . PM&R consulted. acute rehab. Cm aware.
d/w with spouse over the phone in details-patient will require extensive outpatient follow-up with cardiology and infectious disease and primary doctor
Anticipated Discharge: Within 24 hours
Subjective/Interval History
-
Date of Service: June 26, 2023
Had multiple bowel movements in last 24h
feeling better
Objective Data
-
Vital Signs:
Vital Signs
Temp Pulse Resp BP Pulse Ox
97.2 F 78 16 151/96 98
06/26/23 07:36 06/26/23 07:36 06/26/23 07:36 06/26/23 07:36 06/26/23 07:36
I&O
06/25/23 06/26/23 06/27/23
06:59 06:59 06:59
Intake Total 1200 / 1200 1320 / 1320 240 / 240
Output Total 1225 / 1225 800 / 800 700 / 700
Balance -25 / -25 520 / 520 -460 / -460
Physical Exam
-
HEENT: Moist Mucous Membranes
Respiratory: Clear to Auscultation
Cardiac: Regular Rhythm and S1/S2
GI: Soft, Nontender, Nondistended and Normal Bowel Sounds
Genito-urinary: Deferred by me
Musculoskeletal: No Edema and Other (RUE picc line )
Neuro: Awake and AO x 3; Negative No Motor Deficits (Right hemiparesis as before)
Psych: Calm
--- NOTE | 2023-06-26 13:33 | W.DCSUMMARY ---
Discharge Summary
Discharge Data
Date of Admission: 06/21/23
Date of Discharge: 06/26/23
-
Pending Results: No
Hospital Course
52-year-old male with past medical history of recently diagnosed infective endocarditis, right-sided hemiparesis secondary to CVA secondary to embolic phenomenon, chronic HFrEF, diabetes mellitus uncontrolled, primary hypertension, normocytic
anemia, morbid obesity due to excess calories [facility] with [facility]. Patient was complaining of dizziness and severe weakness upon discharge from [facility]. Upon admission patient was started on IV fluids. Patient
with elevated BUN which improved with intravenous fluid. Patient dizziness and weakness improved significantly and patient said he feels back to baseline. Of note patient had an prolonged hospitalization at [facility] where he was
found to have severe respiratory distress status post intubation s/p extubation. Also with DKA. Patient also was found to be CVA secondary to infective endocarditis. Patient will need to continue antibiotics as per prior hospitalization till
07/17. Patient also with constipation which resolved with bowel regimen. Patient was eval by physical and Occupational Therapy. Patient also with right upper extremity superficial vein thrombosis which probably is chronic due to PICC line.
Patient was evaluated by physiatry and will be going to acute rehab. Upon discharge patient will need to follow-up with cardiology infectious disease and primary doctor.
Discharge Plan
-
Patient Disposition: Acute Rehab Facility
Discharge Diagnosis/Procedures: weakness
mild hyponatremia
constipation
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
Condition: Fair
Diet: 2 Gram Sodium, Diabetic, Carb Controlled and Restrict fluids to 48 oz
Activity: With assistance and As tolerated
Driving Restrictions: Not until seen by your Dr
Activity Restrictions/Additional Instructions:
Wound Care Instructions
Legs and feet: Wash with soap and water, apply mineral oil daily.
Leg elevation when sitting
Follow up at wound care center if wounds become worse, call for an appointment.
Referrals:
Fahad Perdomo I., DO [Family Provider] - in less than 1 week
Rdui Ludwig, DO [Active] - in three to four weeks
Bryan Grey, DO [Active] - in three to four weeks
Prescriptions:
New
sennosides-docusate sodium [Stool Softener-Stimulant Laxat] 8.6-50 mg Tablet
1 tab PO BID Qty: 60 0RF
polyethylene glycol 3350 [HealthyLax] 17 gram Powder In Packet
17 g PO DAILY 30 Days Qty: 30 0RF
Rx Instructions:
Hold for if more than 2 loose bowel movements
lidocaine 4 % Adhesive Patch,Medicated
1 patch topical DAILY Qty: 30 0RF
Continued
acetaminophen [Tylenol] 325 mg Tablet
650 mg PO Q6H MDD 3000 mg PRN (Reason: mild pain/temp>100)
carvedilol 6.25 mg Tablet
6.25 mg PO BID
ipratropium-albuterol 0.5 mg-3 mg(2.5 mg base)/3 mL Solution For Nebulization
3 ml INHALATION R Q4HPRN PRN (Reason: wheezing)
insulin glargine 100 unit/mL Solution
25 unit SC DAILY
acetaminophen [Tylenol Extra Strength] 500 mg Tablet
1,000 mg PO Q6H PRN (Reason: mild pain)
Rx Instructions:
06/21/2023, start date: 06/14/2023; end date: 06/24/2023.
magnesium hydroxide [Milk of Magnesia] 400 mg/5 mL Suspension
30 ml PO HSPRN PRN (Reason: if no BM x 3 days)
heparin lock flush (porcine) 10 unit/mL Solution
50 unit IV .SEE BELOW
Rx Instructions:
06/21/2023, use 5 cc IV every shift for Right arm PICC line flush catheter.
bisacodyl 10 mg Suppository
10 mg NE DAILY PRN (Reason: if no results for MOM)
lisinopril 10 mg Tablet
10 mg PO DAILY
insulin lispro 100 unit/mL Solution
5 unit SC AC
sodium chloride 0.9 % (flush) [Normal Saline Flush] Syringe
10 ml IV .SEE BELOW
Rx Instructions:
06/21/2023, use 10 cc IV every shift for Right arm PICC line flush catheter.
Saccharomyces boulardii [Probiotic (S.boulardii)] 250 mg Capsule
250 mg PO TID
cefazolin in 0.9% sod chloride 2 gram/100 mL Solution
100 ml IV Q8H
Rx Instructions:
06/21/2023, start date: 06/15/2023; end date: 07/17/2023.
Discharge Orders:
Discharge Patient (As Directed); Ordered 06/26/23
Ordered By: Joey Granado
== END 2023-06-26 16:19 | DRG 289 ==
LOC: 3 WEST ACU 15:03
PROVIDERS: Nurse Practitioner; ADMITTING PHYSICIAN Internal Medicine; ATTENDING PHYSICIAN Hospitalist; CONSULT PHYSICIAN Physical Medicine & Rehabilitation; EMERGENCY PHYSICIAN Emergency Medicine; FAMILY PHYSICIAN Internal Medicine
DX: I33.0 Acute and subacute infective endocarditis (principal); E87.1 Hypo-osmolality and hyponatremia; I50.22 Chronic systolic (congestive) heart failure; I69.351 Hemiplegia and hemiparesis following cerebral infarction affecting right dominant side; I82.711 Chronic embolism and thrombosis of superficial veins of right upper extremity; T82.868A Thrombosis due to vascular prosthetic devices, implants and grafts, initial encounter; R42 Dizziness and giddiness; I11.0 Hypertensive heart disease with heart failure; D64.9 Anemia, unspecified; E83.51 Hypocalcemia; E86.9 Volume depletion, unspecified; K59.00 Constipation, unspecified; E66.01 Morbid (severe) obesity due to excess calories; M54.50 Low back pain, unspecified; E11.65 Type 2 diabetes mellitus with hyperglycemia; R94.4 Abnormal results of kidney function studies; M25.512 Pain in left shoulder; Z79.4 Long term (current) use of insulin; Z68.37 Body mass index [BMI] 37.0-37.9, adult
CPT/HCPCS: 71045; 72100; 73030; 80048; 80053; 81003; 81015; 82728; 82962; 83036; 83540; 83550; 83935; 84300; 84484; 85014; 85018; 85025; 85027; 85045; 85652; 86140; 87040; 87086; 87324; 87449; 89055; 93005; 93971; 96360; 97116; 97163; 97167; 97530; 97535; 99285

== ENCOUNTER 2023-07-07 14:38 | Inpatient (IN) | payer BC, SELFPAY ==
[2023-07-07] VITALS (13 sets, daily range): BP systolic 88–159; BP diastolic 91–109; BMI 38.6; BMI 36.9
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
--- NOTE | 2023-07-07 14:26 | HPS.HSE ---
Addendum entered and electronically signed by Daniel Martines MD 07/07/23 14:54:
I saw and examined the patient.
The KIER DRIER or PA's note was reviewed and I agree with the note.
Comment: History as noted and reviewed with KIER DRIER and patient examined/patient had been doing well at [facility] but developed shortness of breath today and actually worse in the last 2 days and had actually gained almost 30 pounds in weight during his
stay there had been started on diuretic management not much effect his main complaints today were in relation to abdominal discomfort prompting a evaluation of his abdomen noting no obstruction but with significant pleural effusions and CT imaging
now showing a large right pleural effusion and a moderate to large left pleural effusion with small bilateral pulmonary emboli without RV strain he remains dyspneic short of breath on 2 L of nasal cannula oxygen. He is markedly fluid overloaded on
presentation he has a PICC line in his right arm that is been prior noted to have a superficial phlebitis some 2 weeks ago. He has a hemiparesis involving the right side over the since diagnosis of a subacute bacterial endocarditis further details
which you have organism unavailable however was to finish antibiotic course on the with Ancef IV. He has chronic complaints of abdominal discomfort and constipation. Also was noted to have significant scrotal edema and does have yeastlike
rash throughout the para scrotal region in the scrotum itself with edema. Other comorbidities include hypertension type 2 diabetes mellitus and a recent course of DKA at [facility] along with chronic hyponatremia chronic leg edema of note the patient
had been on mechanical and heparin subcu prophylaxis while at [facility]. He is morbidly obese.
Presentation is consistent now with large bilateral pleural effusions with hypoxic respiratory failure
-Will require thoracentesis per interventional radiology fluid analysis orders written
-Will continue on IV diuresis twice daily till thoracentesis at the very least and consult pulmonary and cardiology
Bilateral pulmonary emboli small bowel clot burden with no RV strain
-Doubt this is significantly contributing to his presentation/unclear source although has been bedbound has endocarditis and a PICC line and certainly could have lower extremity DVTs also
-Start heparin drip transition to apixaban or Xarelto pending further workup
Prior CVA with right hemiparesis in relation to recent diagnosis of endocarditis he will continue on cefazolin 2 g IV Q8 till July 21 he has a PICC line in his right arm
Hypertension, continue carvedilol and lisinopril and have been recently decreased to 5 mg may need to increase dosing again based on presentation
Fluid overload and generalized anasarca with marked weight gain
-IV diuresis
Chronic constipation /obstipation
-Obstructive series today unremarkable except for lung findings
-Continue bowel regime
Chronic hyponatremia/will continue on fluid restriction and monitor
Anemia multifactorial in relation to multiple comorbidities
Type 2 diabetes mellitus
-Continue glargine insulin 22 units/NovoLog 5 units AC/sliding scale
Would admit to IMU for close observation
DVT prophylaxis with heparin drip/mechanical
Full CODE STATUS
Original Note:
Family Physician
-
Family Physician: * NONE
Chief Complaint
-
Shortness of Breath
History of Present Illness
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 Pt states he began experiencing shortness of breath last night while trying to
defecate. He states he reported this to his nurse at [facility] and was told to wait until the morning. He states his symptoms did not resolve with positional changes and worsened this morning. He had a Chest CT which revealed small bilateral
pulmonary emboli and large bilateral pleural effusions which prompted staff to send him to the emergency department for evaluation. Patient denies prior history of heart failure, but admits to increased edema and 30lb weight gain.
Medical History
Past Medical History
Past Medical History: Reports Other
Additional Past Medical History:
Infective Endocarditis
Embolic CVA with Right Hemiparesis
Chronic HFrEF
Essential Hypertension
Diabetes Mellitus, Type II
Past Surgical History: Reports None
Social History
Tobacco: Former Smoker (Quit about 3 years )
Alcohol: None
Family History
Family History: Not pertinent
Allergies / Home Medications
Allergies reflects when Allergies were last updated in [facility].
Home Medications with original date entered in [facility]
Allergy/Medication List:
Allergies
Allergy/AdvReac Type Severity Reaction Status Date / Time
No Known Allergies Allergy Unverified 06/17/23 21:20
Home Medications
Saccharomyces boulardii 250 mg capsule (Probiotic (S.boulardii)) 250 mg PO DAILY Gastrointestinal Issue 06/21/23
acetaminophen 500 mg tablet (Tylenol Extra Strength) 1,000 mg PO Q8HPRN PRN mild pain 06/21/23
bisacodyl 10 mg rectal suppository 10 mg NH DAILYPRN PRN if no results for MOM 06/21/23
carvedilol 6.25 mg tablet 6.25 mg PO BID Blood Pressure 06/21/23
cefazolin 2 gram/100 mL in 0.9 % sodium chloride intravenous solution 100 ml IV Q8H Infection 06/21/23
insulin glargine 100 unit/mL subcutaneous solution 25 unit SC DAILY Diabetes 06/21/23
ipratropium 0.5 mg-albuterol 3 mg (2.5 mg base)/3 mL nebulization soln 3 ml inhalation R Q4HPRN PRN wheezing 06/21/23
lisinopril 10 mg tablet 5 mg PO DAILY Blood Pressure 06/21/23
magnesium hydroxide 400 mg/5 mL oral suspension (Milk of Magnesia) 30 ml PO HSPRN PRN if no BM x 3 days 06/21/23
alprazolam 0.25 mg tablet (Xanax) 0.25 mg PO Q8HPRN PRN anxiety 07/07/23
ascorbic acid (vitamin C) 500 mg tablet (Vitamin C) 500 mg PO DAILY 07/07/23
baclofen 5 mg tablet 5 mg PO HS 07/07/23
bisacodyl 5 mg tablet,delayed release (Dulcolax (bisacodyl)) 10 mg PO DAILYPRN PRN constipation 07/07/23
cholecalciferol (vitamin D3) 50 mcg (2,000 unit) tablet (Vitamin D3) 50 mcg PO DAILY 07/07/23
docusate sodium 100 mg capsule (Colace) 100 mg PO BID 07/07/23
ferrous sulfate 325 mg (65 mg iron) tablet 325 mg PO DAILY 07/07/23
furosemide 40 mg tablet (Lasix) 40 mg PO DAILY 07/07/23
heparin lock flush (porcine) 10 unit/mL intravenous solution 5,000 unit IV TID@0600,1400,2200 07/07/23
heparin, porcine (PF) 100 unit/mL intravenous syringe 500 unit IV TID@0000,0800,1600 07/07/23
insulin aspart U-100 100 unit/mL (3 mL) subcutaneous pen (Novolog FlexPen U-100 Insulin aspart) 5 unit SC AC 07/07/23
lidocaine 4 % topical patch 1 patch topical DAILY Left shoulder 07/07/23
magnesium oxide 500 mg PO DAILY 07/07/23
sennosides 8.6 mg-docusate sodium 50 mg tablet (Stool Softener-Stimulant Laxative) 1 tab PO BIDPRN PRN constipation 07/07/23
simethicone 80 mg chewable tablet 80 mg PO TIDPRN PRN gerd 07/07/23
Review of Systems
-
A 12 point ROS was completed and negative except as noted: Yes
Constitutional: Reports Weight Gain; Denies Fever or Chills
Respiratory: Reports Trouble Breathing; Denies Cough
Cardiac: Denies Chest Pain or Palpitations
Abdomen/GI: Reports Abdominal Pain; Denies Nausea or Vomiting
Physical Exam
Vital Signs
Vital Signs
Temp Pulse Resp BP Pulse Ox
98.8 F 90 25 144/97 100
07/07/23 12:38 07/07/23 13:45 07/07/23 13:45 07/07/23 13:00 07/07/23 13:30
Physical Exam
General: Comfortable and Conversant
HEENT: Anicteric, Moist mucous membranes and Oxygen (Nasal Cannula)
Respiratory: Decreased Breath Sounds
Cardiac: S1/S2 and Regular Rhythm
GI: Soft and Non Tender
Musculoskeletal: No Clubbing, No Cyanosis, Edema, Right Upper Extremity, Edema, Left Lower Extremity and Edema, Right Lower Extremity
Skin: Warm and Dry
Neuro: Awake, Alert, Oriented and Other (Right hemiparesis)
Psych: Calm
Data Reviewed
-
CT Scan: Report Reviewed by me
Lab Data: Labs Reviewed by me
Impression/Plan
-
Bilateral Pleural Effusion secondary to Acute Heart Failure
-Consult IR for thoracentesis
-Consult Cardiology
-Check Echocardiogram
-Continue Lasix 40mg IV BID
-Monitor Is&Os and Daily Weight
Bilateral Pulmonary Emboli
-Check Lower Ext Peripheral Vascular US
-Consult Pulmonary
-Start heparin drip
Infective Endocarditis
-Continue Ancef as prior to admission
Embolic CVA with Right Hemiparesis
-Continue PT/OT
-Continue baclofen
Essential Hypertension
-Continue Coreg and Lisinopril with hold parameters
Diabetes Mellitus, Type II
-HgbA1c 11.3 in May 2023
-Continue Glargine and Novolog
-Monitor sugars and continue coverage insulin
Chronic Anemia
-Check iron studies, vitamin b12 and folate
Anxiety
-Continue alprazolam prn
Code Status: Full Code
[2023-07-07] MEDS: HEPARIN 25000 UNITS/250 ML IV (14:55)
[2023-07-07] MEDS: HEPARIN 5000 UNITS IV (14:58)
[2023-07-07 15:06] LABS: INR 1.25; PT 15.5 Sec (11.4-14.6)
[2023-07-07 15:07] LABS: APTT 40.3 Sec (23.4-35.0)
[2023-07-07] MEDS: LASIX 40 MG IV ×2 (15:38→22:31)
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
--- NOTE | 2023-07-07 17:19 | W.PN.UPDATE ---
Update Note
Progress Note Update
- L thora: 500 mL juan f pleural fluid obtained. Specimens sent.
- Images of R chest showed small to moderate effusion. CT report overstated volume of fluid present and amount of R sided fluid is likely around 500 mL as well.
- Ok to resume heparin in 2 hours
[2023-07-07 18:07] LABS: Body Fluid Amylase < 30 U/L; Body Fluid Glucose 92 mg/dl; Body Fluid LDH 98 U/L; Body Fluid Protein < 2.0 g/dl
[2023-07-07 18:09] LABS: Body Fluid Triglycerides < 30 mg/dl
[2023-07-07 18:14] LABS: Body Fluid pH 7.56
[2023-07-07 18:33] LABS: Glucose - Point of Care 98 mg/dl (70-99)
[2023-07-07 18:38] LABS: Body Fluid Mononuclear 92.6 %; Body Fluid Polymorphonuclear 7.4 %; Body Fluid WBC 365 /CUMM
[2023-07-07 18:39] LABS: Body Fluid Second Tech CMB
[2023-07-07] MEDS: NOVOLOG FLEXPEN-LOW RESISTANCE SC (18:39)
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
[2023-07-07] MEDS: NOVOLOG FLEXPEN SC (19:03)
--- NOTE | 2023-07-07 20:17 | VATNOTE ---
Patient's right arm, PICC arm, appears to be swollen in the forearm to the hand. UAC is 35cm in right are and 34 cm in left arm. Primary RN at bedside. Due to swelling in PICC arm US recommended. Primary RN will discuss with provider. Will continue
to follow.
[2023-07-07 21:27] LABS: Glucose - Point of Care 153 mg/dl (70-99)
[2023-07-07] MEDS: DESENEX/MITRAZOL/ZEASORB 1 APPLIC TOPICAL (22:30)
[2023-07-07] MEDS: ANCEF 10 IV (22:30)
[2023-07-07] MEDS: LIORESAL 5 MG PO (22:30)
[2023-07-07] MEDS: COREG 6.25 MG PO (22:31)
[2023-07-07] MEDS: SENOKOT-S 2 TABLET PO (22:31)
[2023-07-07] MEDS: XANAX 0.25 MG PO (22:33)
--- NOTE | 2023-07-07 23:02 | PTCARENOTE ---
HR 140's RR's 50's. Pt with increased work of breathing. Whole body tremulous. Temp 102.9. RT on floor gave neb treatment. Ice packs applied to axillary and harpal areas. Tylenol given. Martine ART TT'd and made aware. Will continue to monitor.
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
[2023-07-08] VITALS (10 sets, daily range): BP systolic 123–135; BP diastolic 83–94; BMI 36.6
[2023-07-08 02:25] LABS: APTT 136.3 Sec (23.4-35.0)
--- NOTE | 2023-07-08 02:36 | PTCARENOTE ---
Pt requesting to use bathroom for BM. Explained to pt we could assist him to bathroom but would need to stay with him since he is here with PE's and unsteady on his feet. Pt upset about his physical status. States 'I'm not a man anymore. I just want
to go home. I was suppose to go home from [facility] on the now I'm here.' Pt expressed concern he wants to go home for his grandson's birthday on the . This RN explained to pt that it was still possible to be home for his grandson's birthday. Pt
very grateful for all care given but is depressed about his physical status. Pt declined to go the bathroom or to use BSC or bedpan at this time. States he will use urinal to void and will speak to Temo later today.
--- NOTE | 2023-07-08 03:44 | PTCARENOTE ---
PTT resulted 136.3. Heparin gtt held for one hour. Restarted one hr later and per order decreased by 400 units to 16mls per hour. Next PTT in for 1140. Pt resting comfortably. Call montoya remains within reach. Will continue to monitor.
[2023-07-08 04:28] LABS: Hematocrit 23.9 % (39.0-52.0); Hemoglobin 7.9 g/dL (13.0-18.0); Mean Corp Hgb Conc. 33.1 g/dL (33.0-37.0); Mean Corpuscular Hgb 30.6 pg (27.0-31.0); Mean Corpuscular Volume 92.6 fL (80.0-94.0); Mean Platelet Volume 8.8 fL (7.4-10.4); Platelet Count 136 10^3/uL (130-400); Red Blood Cell Count 2.58 10^6/uL (4.70-6.10); Red Cell Dist. Width 14.3 % (11.5-14.5); White Blood Cell Count 4.8 10^3/uL (4.8-10.8)
[2023-07-08 05:00] LABS: Blood Urea Nitrogen 29 mg/dl (9-20); Calcium 8.7 mg/dl (8.4-10.2); Carbon Dioxide 32 mmol/L (22-30); Chloride 97 mmol/L (98-107); Estimated Creatinine Clearance 111 ml/min; Glucose 102 mg/dl (70-99); Magnesium 1.8 mg/dl (1.6-2.3); Potassium 4.1 mmol/L (3.5-5.1); Sodium 135 mmol/L (135-145); Total Protein 5.8 g/dl (6.3-8.2); eGFR > 60.00
[2023-07-08 05:03] LABS: NT-proBNP 5410 pg/ml; Troponin I 0.023 ng/ml
[2023-07-08 05:31] LABS: TSH Reflex To Free T4 5.64 uIU/ml (0.47-4.68)
[2023-07-08 05:33] LABS: LDH 211 U/L (120-246)
[2023-07-08 06:00] LABS: Free T4 1.35 ng/dl (0.78-2.19)
[2023-07-08] MEDS: ANCEF 10 IV ×3 (06:29→21:45)
[2023-07-08] MEDS: FLUSH (NSS) 2 FLUSH IV (06:30)
--- NOTE | 2023-07-08 06:48 | W.PN.HOSP.TC ---
Today's Communication/Plan
-
Awake venous Doppler report
Continue heparin drip
Continue IV diuresis Daily weights monitoring of renal status
Status postthoracentesis
Await repeat 2D echocardiogram compared to results from [place] obtain medical records
Continue IV Ancef through 21 July
Continue to monitor PICC line access site for possible source of emboli no other found
Assessment / Plan
Assessment / Plan
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 Pt states he began experiencing shortness of breath last night while trying to
defecate. He states [facility] and was told to wait until the morning. He states his symptoms did not resolve with positional changes and worsened this morning. He had a Chest CT which revealed small bilateral
pulmonary emboli and large bilateral pleural effusions which prompted staff to send him to the emergency department for evaluation. Patient denies prior history of heart failure, but admits to increased edema and 30lb weight gain.�
Bilateral Pleural Effusion secondary to Acute Heart Failure
-Fluid overload consistent with anasarca marked weight gain last month
-Consult IR for thoracentesis/had right-sided thoracentesis with 500 cc
-Fluid analysis looks to be transudative
-Consult Cardiology
-Check Echocardiogram pending
-Continue Lasix 40mg IV BID
-Monitor Is&Os and Daily Weight
Bilateral Pulmonary Emboli
-Check Lower Ext Peripheral Vascular US/pending results
-Need to clarify echocardiogram results from [facility] valve and involved with endocarditis
-
-Consult Pulmonary
-Start heparin drip
Infective Endocarditis
-Continue Ancef as prior to admission/through July 21
-Consider infectious disease input early next week
Embolic CVA with Right Hemiparesis
-Continue PT/OT
-Continue baclofen
Essential Hypertension
-Continue Coreg and Lisinopril with hold parameters
Diabetes Mellitus, Type II
-HgbA1c 11.3 in May 2023
-Continue Glargine and Novolog
-Monitor sugars and continue coverage insulin
Chronic Anemia
-Check iron studies, vitamin b12 and folate
Anxiety
-Continue alprazolam prn
Yeast appearing rash in the scrotal region
-Local care and nystatin powder
-Scrotal elevation when possible
-Hopefully will improve with diuresis
Code Status: Full Code�
Anticipated Discharge: > 48 hours
Subjective/Interval History
-
Date of Service: July 08, 2023
Shortness of breath and dyspnea is significantly improved from yesterday on arrival had a fairly restful night remains on 2 L nasal flow oxygen good urine output throughout the night/remains anxious and depressed over his multiple comorbidities and
extended stays in rehab.
Objective Data
-
Labs:
Laboratory Results
07/08/23 07/08/23 07/08/23
01:38 04:17 11:40
WBC 4.8
Hgb 7.9 L
Hct 23.9 L
Plt Count 136
APTT Cancelled Pending
Sodium 135
Potassium 4.1
Chloride 97 L
Carbon Dioxide 32 H
BUN 29 H
Creatinine 1.0
Glucose 102 H
Calcium 8.7
07/08/23
Unknown
WBC
Hgb
Hct
Plt Count
APTT 136.3 H
Sodium
Potassium
Chloride
Carbon Dioxide
BUN
Creatinine
Glucose
Calcium
Vital Signs:
Vital Signs
Temp Pulse Resp BP Pulse Ox
98.6 F 84 17 131/87 98
07/08/23 03:30 07/08/23 02:00 07/08/23 02:00 07/08/23 02:00 07/08/23 02:00
I&O
07/06/23 07/07/23 07/08/23
06:59 06:59 06:59
Intake Total 480 / 480
Output Total 3050 / 3050
Balance -2570 / -2570
Review of Systems
-
History Source: Patient and Family
Constitutional: Reports Fatigue
EENT: Reports No Symptoms Reported
Respiratory: Denies Trouble Breathing (Improved)
Cardiac: Reports No Symptoms
Abdomen/GI: Reports No Symptoms
Physical Exam
-
General: No Apparent Distress
HEENT: Normocephalic
Respiratory: Rales
Cardiac: Regular Rhythm
GI: Soft and Nontender
Genito-urinary: Clear Urine and Other (Scrotal swelling and erythematous rash scaling)
Musculoskeletal: Edema, Right Upper Extrem, Edema, Left Upper Extrem, Edema, Right Lower Extrem and Edema, Left Lower Extrem
Skin: Rash, Ulcers (Lower extremities pretibial areas), Lesions and IV Access / Catheter Site
Neuro: Awake, Oriented and AO x 3
Psych: Anxious
Data Reviewed
-
Total Time Spent with Patient (in minutes): 45
CT Scan: Report Reviewed by me (Results reviewed)
Labs: Labs Reviewed by me (Hemoglobin 7.9/BUN 29 creatinine 1.0 stable/troponin indeterminate/proBNP 5400/TSH is 5.64/fluid analysis showed 365 white cells/low protein and LDH glucose compatible with serum blood sugar/probable transudate)
[2023-07-08 08:18] LABS: Glucose - Point of Care 114 mg/dl (70-99)
[2023-07-08] MEDS: NOVOLOG FLEXPEN-LOW RESISTANCE SC (08:23)
[2023-07-08] MEDS: HEPARIN 25000 UNITS/250 ML IV (10:33)
[2023-07-08] MEDS: LASIX 40 MG IV ×2 (10:36→17:02)
[2023-07-08] MEDS: LANTUS 0.25 UNITS SC (10:36)
[2023-07-08] MEDS: MAGNESIUM OXIDE 500 MG PO (10:41)
[2023-07-08] MEDS: ZESTRIL 5 MG PO (10:41)
[2023-07-08] MEDS: FEOSOL 325 MG PO (10:41)
[2023-07-08] MEDS: SENOKOT-S 2 TABLET PO ×2 (10:41→19:53)
[2023-07-08] MEDS: FLORASTOR 250 MG PO (10:42)
[2023-07-08] MEDS: DESENEX/MITRAZOL/ZEASORB 1 APPLIC TOPICAL ×2 (10:42→19:52)
[2023-07-08] MEDS: COREG 6.25 MG PO ×2 (10:42→19:53)
[2023-07-08] MEDS: LIDOCAINE 4% PATCH 1 PATCH TOPICAL ×2 (10:43→12:13)
[2023-07-08 10:47] LABS: APTT 61.4 Sec (23.4-35.0)
[2023-07-08] MEDS: HEPARIN 10000 UNITS IV (10:59)
--- NOTE | 2023-07-08 11:20 | PTCARENOTE ---
Pt rec'd from previous RN 06:45. Weaned to room air, assisted oob to bathroom and then to sit up in chair. Pt anxious to increase activity, asking for PT and when he might be able to go back to [place]. Plan of care discussed. Pt pleasant and
cooperative, states he wants to be made DNR code status, he 'believes in God and if he wants me I'm ready'....Dr. Martines notified, DNR orders rec'd. Call montoya in reach, safe environment maintained. PTT assessments and heparin titration as
documented. See worklist.
[2023-07-08] MEDS: NOVOLOG FLEXPEN SC (11:56)
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
[2023-07-08 12:47] LABS: Glucose - Point of Care 219 mg/dl (70-99)
[2023-07-08] MEDS: NOVOLOG FLEXPEN 5 UNITS SC ×2 (12:49→17:03)
[2023-07-08] MEDS: NOVOLOG FLEXPEN-LOW RESISTANCE 2 UNITS SC (12:49)
--- NOTE | 2023-07-08 14:21 | W.PN.CARDCBS ---
Today's Communication / Plan
-
Check echo in a.m.
Check chest x-ray for right effusion
Continue IV Lasix
Review records from [place]
Likely spironolactone, SGLT2 antagonist, Entresto
Impression / Plan
-
Impression:
Acute on chronic HFrEF
Bilateral pulmonary emboli by CT scan 07/07/2023
Infective endocarditis treated at [facility], now on cefazolin
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
diabetes with recent diabetic ketoacidosis
Hypertension
Morbid obesity
Right upper extremity superficial thrombophlebitis related to PICC line 2023
Anemia
Plan:
From standpoint of acute on chronic HFrEF he looks improved and is approaching euvolemia. However, proBNP is 5410. Troponin is barely detectable. No acute EKG changes. Continue IV Lasix for now, probably transition to oral in 24 to 48 hours.
Will be important to review echo in a.m., assess for for aortic or mitral regurgitation, LV function, etc. to help guide adjustments in GDMT.
Will need to obtain records from [place].
Repeat chest x-ray in AM.
Defer management of hemoglobin to hospitalist. Is he iron deficient? Does he need IV iron
Progress Note - Sample Finisher
Subjective
Date of Service: July 08, 2023:
Patient feels very well, eating lunch, no complaints
No medication allergies,
Current medications: NovoLog, baclofen, mag oxide, carvedilol 6.25 twice daily, lisinopril 5 mg a day, furosemide IV twice daily 40 mg, cefazolin, lidocaine patch
PMH/PSH/SH/FH: Reviewed
Review of systems: Negative except as above
Hemoglobin 7.9, had been 8.4 platelets are 136, BUN and creatinine are 29 and 1.0 potassium is 4.1
Objective
Labs:
07/08/23 04:17
07/08/23 04:17
Labs
Hgb 7.9 g/dL (13.0-18.0) L 07/08/23 04:17
Hct 23.9 % (39.0-52.0) L 07/08/23 04:17
Plt Count 136 10^3/uL (130-400) 07/08/23 04:17
PT 15.5 Sec (11.4-14.6) H 07/07/23 14:48
INR 1.25 07/07/23 14:48
APTT 136.3 Sec (23.4-35.0) H 07/08/23 Unknown
Sodium 135 mmol/L (135-145) 07/08/23 04:17
Potassium 4.1 mmol/L (3.5-5.1) 07/08/23 04:17
BUN 29 mg/dl (9-20) H 07/08/23 04:17
Creatinine 1.0 mg/dL (0.7-1.3) 07/08/23 04:17
Glucose 102 mg/dl (70-99) H 07/08/23 04:17
Troponins
07/08/23
04:17
Troponin I 0.023
Vital Signs and I&O:
Vital Signs
Temp Pulse Resp BP Pulse Ox
37.2 C 87 19 155/94 96
07/08/23 07:45 07/08/23 10:38 07/08/23 10:38 07/08/23 10:36 07/08/23 12:51
Vital Signs
Temp Pulse Resp BP Pulse Ox
37.2 C 87 19 155/94 96
07/08/23 07:45 07/08/23 10:38 07/08/23 10:38 07/08/23 10:36 07/08/23 12:51
Intake & Output
07/06/23 07/07/23 07/08/23 07/09/23
07:59 07:59 07:59 07:59
Intake Total 480 / 480
Output Total 3050 / 3050 275 / 275
Balance -2570 / -2570 -275 / -275
Physical Exam
Physical Exam
155/94, pulse 87, head neck exam unremarkable, lungs are clear, cardiac no obvious murmurs, JVD okay, abdomen obese, still 1+ to 2+ edema,
sats 96%, weight is 119 kg, was 125.5 kg on transfer July 07
[2023-07-08] MEDS: NOVOLOG FLEXPEN-LOW RESISTANCE 1 UNITS SC (17:03)
[2023-07-08 17:11] LABS: Glucose - Point of Care 163 mg/dl (70-99)
[2023-07-08 17:50] LABS: APTT > 200 Sec (23.4-35.0)
--- NOTE | 2023-07-08 18:44 | PTCARENOTE ---
PTT result at 18:00 was >200. Per protocol, heparin gtt placed on hold for [address] Martines notified, will pass on to oncoming RN that heparin due to resume at 20:00 at 1600 units/hr.
--- NOTE | 2023-07-08 19:35 | PTCARENOTE ---
Pt assisted to bathroom 3 times this shift, sat on toilet for long periods of time, complains of stomach ache and inability to 'fully empty' 3 Bms noted this shift, pt stated earlier bowels were loose, son this evening stated it is 'hard ashu.'
-Dr. Martines tt, orders rec'd for Bentyl. Plan discussed with oncoming RN, pt and son updated.
[2023-07-08] MEDS: BENTYL 10 MG PO (19:51)
[2023-07-08] MEDS: PEPCID 20 MG PO (19:51)
--- NOTE | 2023-07-08 20:00 | PTCARENOTE ---
Pt received AAOx3 resting in bed w/ son at bedside. SR on the monitor. Lungs decreased coarse w/ crackles at the bases. Hypoactive BS. Pt c/o of 'hard pebble' stool. + 2 b/l LE, + 2 RUE, and + 2 Scrotal edema. Scabs to b/l LE and feet. Hep gtt
infusing.
[2023-07-08] MEDS: XANAX 0.25 MG PO (20:14)
[2023-07-08] MEDS: LIORESAL 5 MG PO (21:45)
[2023-07-08 22:26] LABS: Glucose - Point of Care 120 mg/dl (70-99)
[2023-07-09] VITALS (11 sets, daily range): BP systolic 120–155; BP diastolic 72–102; BMI 36.4; BMI 36.1
[2023-07-09] MEDS: HEPARIN 25000 UNITS/250 ML IV ×2 (01:28→17:18)
[2023-07-09 02:38] LABS: Hematocrit 22.7 % (39.0-52.0); Hemoglobin 7.6 g/dL (13.0-18.0); Mean Corp Hgb Conc. 33.5 g/dL (33.0-37.0); Mean Corpuscular Hgb 31.1 pg (27.0-31.0); Platelet Count 149 10^3/uL (130-400); Red Blood Cell Count 2.44 10^6/uL (4.70-6.10); Red Cell Dist. Width 14.2 % (11.5-14.5); White Blood Cell Count 4.4 10^3/uL (4.8-10.8)
[2023-07-09 02:52] LABS: APTT 90.7 Sec (23.4-35.0)
[2023-07-09 02:58] LABS: Blood Urea Nitrogen 31 mg/dl (9-20); Calcium 8.5 mg/dl (8.4-10.2); Carbon Dioxide 33 mmol/L (22-30); Chloride 95 mmol/L (98-107); Estimated Creatinine Clearance 111 ml/min; Glucose 105 mg/dl (70-99); Potassium 4.2 mmol/L (3.5-5.1); Sodium 133 mmol/L (135-145); eGFR > 60.00
[2023-07-09] MEDS: ANCEF 10 IV ×3 (05:22→23:00)
[2023-07-09] MEDS: FEOSOL 325 MG PO (08:06)
[2023-07-09] MEDS: SENOKOT-S 2 TABLET PO ×2 (08:06→19:50)
[2023-07-09] MEDS: COREG 6.25 MG PO ×2 (08:07→20:05)
[2023-07-09] MEDS: MAGNESIUM OXIDE 500 MG PO (08:07)
[2023-07-09] MEDS: PEPCID 20 MG PO ×2 (08:07→19:50)
[2023-07-09] MEDS: ZESTRIL 5 MG PO (08:07)
[2023-07-09] MEDS: LANTUS 0.25 UNITS SC (08:08)
[2023-07-09] MEDS: FLORASTOR 250 MG PO (08:08)
[2023-07-09] MEDS: LASIX 40 MG IV ×2 (08:08→16:36)
[2023-07-09] MEDS: NOVOLOG FLEXPEN 5 UNITS SC ×3 (08:11→16:48)
[2023-07-09] MEDS: NOVOLOG FLEXPEN-LOW RESISTANCE SC ×4 (08:11→16:47)
[2023-07-09] MEDS: DESENEX/MITRAZOL/ZEASORB 1 APPLIC TOPICAL ×2 (08:12→20:20)
[2023-07-09] MEDS: LIDOCAINE 4% PATCH 2 PATCH TOPICAL (08:12)
[2023-07-09 08:21] LABS: Glucose - Point of Care 111 mg/dl (70-99)
--- NOTE | 2023-07-09 08:45 | PTCARENOTE ---
MRI of the brain to evaluate acute/subacute infarct prior to transition to oral anticoagulation per
Consider neurology evaluation pending MRI results
Continue anticoagulation with IV heparin with
Physical therapy evaluation.
[2023-07-09 08:56] LABS: APTT 68.3 Sec (23.4-35.0)
--- NOTE | 2023-07-09 08:58 | PTCARENOTE ---
Patient received this am from security shift manager nurse. Patient resting in bed. AAOx3 very pleasant. Apologetic. Patient denies any pain at this time. VS stable. Currently on RA. Lung sounds diminished. Patient wears 2L NC HS for hx of sleep apnea. Patient
reports severe constipation, one time dose of Dulcolax given. Patient with pellet like stool.
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
[2023-07-09] MEDS: HEPARIN 5000 UNITS IV (10:56)
[2023-07-09] MEDS: DULCOLAX 5 MG PO (10:57)
--- NOTE | 2023-07-09 11:03 | W.PN.HOSP.TC ---
Today's Communication/Plan
-
Echo
Continue to transition to oral Lasix
MRI of the brain to evaluate acute/subacute infarct prior to transition to oral anticoagulation per
Consider neurology evaluation pending MRI results
Continue anticoagulation with IV heparin with
Physical therapy evaluation.
Assessment / Plan
Assessment / Plan
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 Pt states he began experiencing shortness of breath last night while trying to
defecate. He states he reported this to his nurse at [facility] and was told to wait until the morning. He states his symptoms did not resolve with positional changes and worsened this morning. He had a Chest CT which revealed small bilateral
pulmonary emboli and large bilateral pleural effusions which prompted staff to send him to the emergency department for evaluation. Patient denies prior history of heart failure, but admits to increased edema and 30lb weight gain.�
Impression:
Acute hypoxic respiratory insufficiency.
Acute on chronic CHF reduced EF.
Left pleural effusion. Plan�status post thoracentesis 2/10 500 mL.
Acute bilateral pulmonary embolism.
Conditions prior to admission:
Infective endocarditis treated at [facility] with cefazolin.
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
IDDM with recent DKA.
Essential hypertension baseline morbid obesity BMI of 36.
Right upper extremity superficial thrombophlebitis to peak
2023.
Anemia of chronic disease.
Plan:
Bilateral Pleural Effusion secondary to Acute Heart Failure
-Fluid overload consistent with anasarca marked weight gain last month
-Consult IR for thoracentesis/had right-sided thoracentesis with 500 cc
-Fluid analysis looks to be transudative
-Check Echocardiogram pending
-Continue Lasix 40mg IV BID
-Monitor Is&Os and Daily Weight
Bilateral Pulmonary Emboli
-Lower extremity Doppler negative for DVT
-On anticoagulation with heparin. Eventually transition to oral anticoagulation preferably factor Xa inhibitor. Recent embolic CVA in the settings of endocarditis. Repeated echocardiogram pending. CT head 06/17 with multiple ill-defined
hypoattenuating lesions with the right cerebellum, right hemipons, right occipital lobe, likely infective of acute to subacute infarcts. Prior to transition to oral anticoagulation we will check an MRI. Consider neurology evaluation
Infective Endocarditis
-Continue Ancef as prior to admission/through July 21
-Consider infectious disease input early next week
Embolic CVA with Right Hemiparesis
CT head 06/17 with multiple ill-defined hypoattenuating lesions with the right cerebellum, right hemipons, right occipital lobe, likely infective of acute to subacute infarcts. Prior to transition to oral anticoagulation we will check an MRI.
Consider neurology evaluation
-Continue PT/OT
-Continue baclofen
Essential Hypertension
-Continue Coreg and Lisinopril with hold parameters
Diabetes Mellitus, Type II
-HgbA1c 11.3 in May 2023
-Continue Glargine and Novolog
-Monitor sugars and continue coverage insulin
Chronic Anemia
-Check iron studies, vitamin b12 and folate
Anxiety
-Continue alprazolam prn
Yeast appearing rash in the scrotal region
-Local care and nystatin powder
-Scrotal elevation when possible
-Hopefully will improve with diuresis
Code Status: Full Code�
Anticipated Discharge: > 48 hours
Subjective/Interval History
-
Date of Service: July 09, 2023
Objective Data
-
Labs:
Laboratory Results
07/09/23 07/09/23 07/09/23
02:22 08:28 17:00
WBC 4.4 L
Hgb 7.6 L
Hct 22.7 L
Plt Count 149
APTT 90.7 H 68.3 H Pending
Sodium 133 L
Potassium 4.2
Chloride 95 L
Carbon Dioxide 33 H
BUN 31 H
Creatinine 1.0
Glucose 105 H
Calcium 8.5
Vital Signs:
Vital Signs
Temp Pulse Resp BP Pulse Ox
98.7 F 85 14 124/84 98
07/09/23 03:58 07/09/23 08:08 07/09/23 06:00 07/09/23 08:08 07/09/23 06:00
I&O
07/08/23 07/09/23 07/10/23
06:59 06:59 06:59
Intake Total 480 / 480
Output Total 3050 / 3050 1200 / 1200
Balance -2570 / -2570 -1200 / -1200
Physical Exam
-
General: Well Developed and No Apparent Distress
HEENT: Normocephalic, Atraumatic and Moist Mucous Membranes
Respiratory: Clear to Auscultation
Cardiac: Regular Rhythm and S1/S2; Negative Murmur, Rub or Gallop
GI: Soft, Nontender, Nondistended and Normal Bowel Sounds; Negative Organomegaly
Rectal: Deferred by Provider
Musculoskeletal: No Clubbing, No Cyanosis and No Edema
Skin: Negative Rash
Neuro: Awake, Alert, Oriented, AO x 3 and Other (Right upper extremity weakness)
--- NOTE | 2023-07-09 12:07 | W.PN.CARDCBS ---
Today's Communication / Plan
-
Continue IV Lasix and consider change to oral Lasix on 07/10
Check echo
Consider transfusion
Impression / Plan
-
Impression:
Acute on chronic HFrEF
Bilateral pulmonary emboli by CT scan 07/07/2023
Infective endocarditis treated at [facility], now on cefazolin
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
diabetes with recent diabetic ketoacidosis
Hypertension
Morbid obesity
Right upper extremity superficial thrombophlebitis related to PICC line 2023
Anemia
Plan:
He has improved significantly and wants to go home
I feel we should continue IV Lasix for 1 more day and change to oral Lasix on 07/10
Check echo
Might need transfusion
Discussed with patient and family at bedside
Will need to obtain records from [place].
Progress Note - Utilization Supervisor
Subjective
Date of Service: July 09, 2023
No complaints.
Objective
Labs:
07/09/23 02:22
07/09/23 02:22
Labs
Hgb 7.6 g/dL (13.0-18.0) L 07/09/23 02:22
Hct 22.7 % (39.0-52.0) L 07/09/23 02:22
Plt Count 149 10^3/uL (130-400) 07/09/23 02:22
PT 15.5 Sec (11.4-14.6) H 07/07/23 14:48
INR 1.25 07/07/23 14:48
APTT 68.3 Sec (23.4-35.0) H 07/09/23 08:28
Sodium 133 mmol/L (135-145) L 07/09/23 02:22
Potassium 4.2 mmol/L (3.5-5.1) 07/09/23 02:22
BUN 31 mg/dl (9-20) H 07/09/23 02:22
Creatinine 1.0 mg/dL (0.7-1.3) 07/09/23 02:22
Glucose 105 mg/dl (70-99) H 07/09/23 02:22
Troponins
07/08/23
04:17
Troponin I 0.023
Vital Signs and I&O:
Vital Signs
Temp Pulse Resp BP Pulse Ox
98.7 F 85 14 124/84 98
07/09/23 03:58 07/09/23 08:08 07/09/23 06:00 07/09/23 08:08 07/09/23 06:00
Vital Signs
Temp Pulse Resp BP Pulse Ox
98.7 F 85 14 124/84 98
07/09/23 03:58 07/09/23 08:08 07/09/23 06:00 07/09/23 08:08 07/09/23 06:00
Intake & Output
07/07/23 07/08/23 07/09/23 07/10/23
06:59 06:59 06:59 06:59
Intake Total 480 / 480
Output Total 3050 / 3050 1200 / 1200
Balance -2570 / -2570 -1200 / -1200
Physical Exam
Physical Exam
General: Well developed, well nourished in NAD.
Neck: Supple, no JVD, HJR, carotids +2 B/L, no bruits bilaterally.
Heart: Non displaced PMI, RRR, no murmurs, No S3, S4, no rubs.
Lungs: Scattered rhonchi
Extremities: No clubbing, cyanosis or edema bilaterally.
Neuro: Right hemiplegia
[2023-07-09 12:20] LABS: Glucose - Point of Care 130 mg/dl (70-99)
--- NOTE | 2023-07-09 15:00 | PTCARENOTE ---
Report called to [facility]. All questions and concerns answered. Call back number provided.
[2023-07-09 16:42] LABS: Glucose - Point of Care 125 mg/dl (70-99)
--- NOTE | 2023-07-09 16:47 | CM ---
Patient from [facility] with Dx Acute hypoxic respiratory insufficiency, CHF, Left pleural effusion, Acute bilateral pulmonary embolism, Infective Endocarditis. Room air. PICC. Receiving IV cefazolin, Heparin gtt. PT & OT recommend
outpatient therapy.
Met with patient who resides with his parents in a 2 story house with 3 + 1 AMANDA.
The patient was Independent for ADLs/ambulation.
DME - family is purchasing shower chair and raised toilet seat.
No prior VN.
Prior [facility].
He has no PCP.
Pharmacy - [facility], [place]
Patient would like to return home with a script for outpatient PT/OT.
Spoke with [facility]ia[facility]; agree patient no longer meets acute rehab criteria, and she is aware patient wants to go home at d/c.
Message to Dr Mccarty ---> will patient need to continue on IV cefazolin via PICC at home for 6 wks for endocarditis? He is not going back to [facility]- he will just need a script for outpatient PT/OT.
Plan request script for outpatient PT/OT.
Plan follow up with MD if home IV infusion will be needed.
Plan home.
[2023-07-09 17:39] LABS: APTT 95.5 Sec (23.4-35.0)
[2023-07-09] MEDS: DULCOLAX 10 MG RECTAL (19:49)
[2023-07-09] MEDS: LIORESAL 5 MG PO (22:30)
[2023-07-09 23:06] LABS: Glucose - Point of Care 157 mg/dl (70-99)
[2023-07-09 23:44] LABS: APTT 96.6 Sec (23.4-35.0)
[2023-07-10] MEDS: XANAX 0.25 MG PO ×2 (01:42→21:15)
[2023-07-10] MEDS: TYLENOL 1000 MG PO ×2 (03:46→16:02)
--- NOTE | 2023-07-10 03:59 | W.PN.UPDATE ---
Update Note
Progress Note Update
-Patient complained of SOB, SPo2 down to 70s% on RA, patient was placed on 2 L of o2, spo2 up to 100%. Diminished lung sound on exam, No wheezing or crackles noted.
-Patient continue with sob, will give morning dose of IV lasix, stat chest x-ray. Xopenex neb treatment. abg, stat lab (cbc, bmp, trop, Covid test)
-chest x-ray reviewed with radiologist and possible/suspect of R L infiltration, WBC 6.8 and afebrile. Will add procalcitonin to the blood work.
-ABG result PH7.47, Pco2 45, Po2 53, hco3 32.8, ABG o2 83.L. Patient was placed on non rebreather and will repeat abg
- /Ellen requested to change the code status from DNR to full code. Explained what is full code, confirmed with the patient and he agreed with his to full code.
-The would like to speak to the covering physician. Attending physician updated.
[2023-07-10] MEDS: LASIX 40 MG IV ×2 (04:04→15:53)
[2023-07-10] MEDS: XOPENEX 0.63 MG INHALANT SOLUTION 0.630000000000000004 MG INH (04:08)
[2023-07-10 04:44] LABS: B.E. 8.3 mmol/L; HCO3 32.8 mmol/L (21-28); O2 Saturation % 83.6 % (94-98); PCO2 45 mmHg (35-48); pH 7.47 (7.35-7.45)
[2023-07-10 04:57] LABS: COVID-19 Antigen Negative (Negative)
[2023-07-10 04:58] LABS: PO2 53 mmHg (83-108)
[2023-07-10 04:59] LABS: % Basophils 0.1 % (0-2); % Eosinophils 0.3 % (0-6); % Immature Granulocytes 0.6 % (0-0.5); % Lymphocytes 9.3 % (20.5-51.1); % Neutrophils 81.7 % (42.2-75.2); Absolute Lymphocytes 0.6 10^3/uL (1.2-3.4); Absolute Monocytes 0.5 10^3/uL (0.1-0.6); Absolute Neutrophils 5.5 10^3/uL (1.4-6.5); Hematocrit 23.9 % (39.0-52.0); Hemoglobin 8.1 g/dL (13.0-18.0); Mean Corp Hgb Conc. 33.9 g/dL (33.0-37.0); Mean Corpuscular Hgb 31.2 pg (27.0-31.0); Mean Corpuscular Volume 91.9 fL (80.0-94.0); Mean Platelet Volume 8.8 fL (7.4-10.4); Nucleated Red Blood Cells % 0 % (-); Platelet Count 156 10^3/uL (130-400); Red Cell Dist. Width 14.5 % (11.5-14.5); White Blood Cell Count 6.8 10^3/uL (4.8-10.8)
[2023-07-10 05:22] LABS: Troponin I 0.019 ng/ml
[2023-07-10 05:37] LABS: APTT 73.5 Sec (23.4-35.0)
[2023-07-10 05:40] LABS: Blood Urea Nitrogen 31 mg/dl (9-20); Calcium 8.6 mg/dl (8.4-10.2); Carbon Dioxide 32 mmol/L (22-30); Chloride 96 mmol/L (98-107); Estimated Creatinine Clearance 92 ml/min; Glucose 142 mg/dl (70-99); Potassium 4.1 mmol/L (3.5-5.1); Sodium 133 mmol/L (135-145); eGFR > 60.00
[2023-07-10 06:05] LABS: Magnesium 1.8 mg/dl (1.6-2.3)
[2023-07-10] MEDS: ANCEF 10 IV ×3 (06:36→21:15)
[2023-07-10] MEDS: HEPARIN 25000 UNITS/250 ML IV (06:41)
[2023-07-10 07:54] LABS: B.E. 11.7 mmol/L; HCO3 34.9 mmol/L (21-28); PCO2 39 mmHg (35-48); PO2 124 mmHg (83-108); pH 7.56 (7.35-7.45)
[2023-07-10] MEDS: PEPCID 20 MG PO ×2 (07:56→20:25)
[2023-07-10] MEDS: MAGNESIUM OXIDE 500 MG PO (07:56)
[2023-07-10] MEDS: ZESTRIL 5 MG PO (07:57)
[2023-07-10] MEDS: FEOSOL PO ×2 (07:57→08:36)
[2023-07-10] MEDS: DESENEX/MITRAZOL/ZEASORB 1 APPLIC TOPICAL ×2 (07:57→20:24)
[2023-07-10] MEDS: NOVOLOG FLEXPEN-LOW RESISTANCE SC ×3 (07:57→17:52)
[2023-07-10] MEDS: LIDOCAINE 4% PATCH 2 PATCH TOPICAL (07:57)
[2023-07-10 07:58] LABS: Glucose - Point of Care 139 mg/dl (70-99)
[2023-07-10] MEDS: NOVOLOG FLEXPEN 5 UNITS SC ×2 (07:58→13:02)
[2023-07-10] MEDS: COREG PO ×2 (07:58→20:23)
[2023-07-10 08:00] VITALS: BP 115/74
[2023-07-10] MEDS: LANTUS 0.25 UNITS SC (08:01)
[2023-07-10] MEDS: FLORASTOR 250 MG PO (08:11)
[2023-07-10] MEDS: SENOKOT-S 2 TABLET PO (08:11)
[2023-07-10 09:28] LABS: Procalcitonin 0.08 ng/ml (0.0-0.25)
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
--- NOTE | 2023-07-10 10:00 | PTCARENOTE ---
Received pt very upset, tearful, incontinent of loose brown stool, still c/o feeling constipated. RR 20-30, found on RA, sating 93%, 2L NC placed, sating 98%. LS diminished. ABG obtained as ordered. Dr Mccarty at bedside to assess pt and discuss
plan of care w/ pt and . Will check a chest US. Heparin gtt continues @ 1900 units/hr via L PIV. R sided weakness noted, which is pt's baseline. Assisted OOB to bathroom, x1 w/ RW. R SL PICC patent, labs obtained by VAT. Voiding in urinal. VSS.
--- NOTE | 2023-07-10 10:44 | CON.NEURO ---
Consultation
Order
CC: none
HPI: This is a 52-year-old right-handed man who presented to [facility] on 07/17/2023 with bilateral pleural effusions with hypoxic respiratory failure and was found to have BL pulmonary embolism.
Neurology consultation was requested to comment on safety anticoagulation initiation.
Mr. Puga reportedly was diagnosed with COVID in May of 2023. His hospital course was complicated by sepsis, infectious endocarditis and embolic strokes.
The patient has had residual right hemiparesis/ataxia as well as improving dysarthria.
CT head wo contrast(06/17/2023)-right cerebellum, right hemipons, and right occipital lobe, likely reflective of acute to subacute infarcts.
TTE(07/09/2023)-40-45%, global hypokinesis
Labs: BNP 2410, HbA1C 11.3(06/22/2023),
EKG-NSR with 1st degree of AVB.
Mr. Puga has been on Heparin gtt since 07/07/2023.
PMH: PE, stroke, IE, HTN, DM, CHF, right upper extremity superficial thrombophlebitis
PSH: L thoracentesis(07/07/2023)
SH:; nonsmoker; safety
All:NKDA
ROS:Constitutional: Negative. Negative for chills, fever and unexpected weight change.
HENT: Negative for ear pain, hearing loss, tinnitus and trouble swallowing.
Eyes: Positive for blurred
Respiratory: Negative for cough, choking and shortness of breath.
Cardiovascular: Negative for chest pain, palpitations and leg swelling.
Gastrointestinal: Negative for abdominal pain and vomiting.
Endocrine: Negative. Negative for cold intolerance.
Genitourinary: Negative for dysuria, flank pain and urgency.
Musculoskeletal: Negative for back pain, gait problem, neck pain and neck stiffness.
Skin: Negative for rash.
Allergic/Immunologic: Negative. Negative for immunocompromised state.
Neurological: Positive for dysarthria, right sided weakness
Psychiatric/Behavioral: Negative for behavioral problems, confusion and hallucinations.
General: Well developed. In no acute distress.
Cardio: Regular rate and rhythm without murmur. Extremities are without cyanosis or edema.
Neuro:
Mental Status: Alert, oriented to person, place, and date. Normal attention and recall. Good fund of knowledge. No calculia or alexia. Comprehension, naming, and repetition intact.
Cranial Nerves: . Pupils are equally round and reactive to light. EOMs full. Visual griffin full to confrontation. No ptosis. No nystagmus. V1-V3 intact to light touch and pinprick bilaterally, symmetric. Mild R facial weakness. Normal hearing
AU. The palate elevated well. SCMs and traps 5/5. Tongue midline. Mild dysarthria.
Motor: R arm plegia, R leg drift, LUE/LE-full strength
Reflexes: Limited exam due to position
Sensory: Impaired vibration at the toes and ankles.
Coordination: No dysmetria or tremor.
Gait: deferred
Assessment and Plan:
I. 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 The available limited data suggest that neither anticoagulant therapy nor Aspirin reduce the risk of embolism in patients with IE. Therefore, anticoagulant or antiplatelet therapy is not
indicated to reduce the risk of thromboembolic complications of IE.
II. Acute PE.
III. Type II DM, suboptimally controlled
-Telemetry monitoring.
-Strict glycemic control
-Please check LDL
-Continue systemic anticoagulation given that the risk of sudden outfits the risk of cerebral ICH from hemorrhagic transformation of an embolic stroke, rupture of a mycotic aneurysm, or septic arteritis with hemorrhage from vessel wall
erosions.
-Stat CT head wo contrast in case of change in neuro exam or evidence of increased ICP.
-PT.
-Please recall neurology service with any questions or concerns
I personally reviewed all radiology and labs along with past medical records pertinent to current medical problems.
Thank you for allowing us to participate in the care of this patient. Please do not hesitate to contact us with any questions or concerns.
Subjective/Objective
Subjective Data
Date of Service: July 10, 2023
Objective Data
Vital Signs
Temp Pulse Resp BP Pulse Ox
36.7 C 93 20 115/74 93
07/10/23 08:00 07/10/23 08:00 07/10/23 08:00 07/10/23 08:00 07/10/23 10:13
Lab Results
07/10/23 04:36
07/10/23 04:36
PT 15.5 Sec (11.4-14.6) H 07/07/23 14:48
INR 1.25 07/07/23 14:48
APTT 73.5 Sec (23.4-35.0) H 07/10/23 04:36
Sodium 133 mmol/L (135-145) L 07/10/23 04:36
Potassium 4.1 mmol/L (3.5-5.1) 07/10/23 04:36
BUN 31 mg/dl (9-20) H 07/10/23 04:36
Glucose 142 mg/dl (70-99) H 07/10/23 04:36
Calcium 8.6 mg/dl (8.4-10.2) 07/10/23 04:36
Och-B-Fjielnntezn Pept 5410 pg/ml 07/08/23 04:17
Patient Allergies
No Known Allergies Allergy (Unverified 06/17/23 21:20)
Medications
-
Active Medications
Generic Name Dose Route Start Last Admin
Trade Name Freq PRN Reason Stop Dose Admin
Acetaminophen 1,000 mg 07/07/23 19:52 07/10/23 03:46
Acetaminophen 500 Mg Tablet PO 08/04/23 19:51 1,000 mg
Q8HPRN PRN Administration
mild pain/fever
Alprazolam 0.25 mg 07/07/23 19:52 07/10/23 01:42
Alprazolam 0.25 Mg Tablet PO 08/04/23 19:51 0.25 mg
Q8HPRN PRN Administration
anxiety
Baclofen 5 mg 07/07/23 22:00 07/09/23 22:30
Baclofen 5 Mg Tablet PO 08/04/23 21:59 5 mg
HS RELL Administration
Bisacodyl 5 mg 07/09/23 09:47 07/09/23 10:57
Bisacodyl 5 Mg Enteric Coated Tablet PO 08/06/23 09:46 5 mg
DAILYPRN PRN Administration
constipation
Carvedilol 6.25 mg 07/07/23 20:00 07/10/23 07:58
Carvedilol 6.25 Mg Tablet PO 08/04/23 19:59 Not Given
BID RELL
Dextrose 12.5 grams 07/07/23 19:52
Dextrose 50% (0.5 Grams/Ml) 50 Ml Syringe IV 08/04/23 19:51
[id number] PRN
hypoglycemia
Protocol
Famotidine 20 mg 07/08/23 20:00 07/10/23 07:56
Famotidine 20 Mg Tablet PO 08/05/23 19:59 20 mg
BID RELL Administration
Ferrous Sulfate 325 mg 07/08/23 08:00 07/10/23 08:36
Ferrous Sulfate 325 Mg Tablet PO 08/05/23 07:59 Not Given
DAILY RELL
Furosemide 40 mg 07/07/23 19:52 07/10/23 04:04
Furosemide 40 Mg (10 Mg/Ml) 4 Ml Vial IV 08/04/23 19:51 40 mg
BID AT 0800,1600 RELL Administration
Glucagon 1 mg 07/07/23 19:52
Glucagon 1 Mg Vial IM 08/04/23 19:51
PRN PRN
hypoglycemia
Protocol
Heparin Sodium 10,000 units 07/07/23 14:39 07/08/23 10:59
Heparin 80 Units/Kg Iv Rebolus IV 08/04/23 14:38 10,000 units
PRN PRN Administration
PTT < OR = 64 seconds
Heparin Sodium 5,000 units 07/07/23 14:40 07/09/23 10:56
Heparin 40 Units/Kg Iv Rebolus IV 08/04/23 14:39 5,000 units
PRN PRN Administration
PTT = 64.1 to 72.9 seconds
Heparin Sodium 25,000 units in 250 mls @ 0 mls/hr 07/07/23 14:15 07/10/23 06:41
Heparin 41063 Units/250 Ml IV 250 mls
PER PROTOCOL RELL Administration
Protocol
Per Protocol
Cefazolin Sodium 2 grams in 10 mls @ 120 mls/hr 07/07/23 22:00 07/10/23 06:36
Ancef IV 10 mls
Q8H RELL Administration
Insulin Glargine 25 units/ 0.25 mls @ 0 mls/hr 07/08/23 08:00 07/10/23 08:01
Device SC 08/05/23 07:59 0.25 mls
DAILY RELL Administration
As Directed
Insulin Aspart 0 units 07/07/23 18:25 07/10/23 07:57
Insulin Aspart Low Resistance 300 Units/3 Ml Pen.Injctr SC 08/04/23 18:24 Not Given
AC RELL
Protocol
Insulin Aspart 5 units 07/07/23 19:00 07/10/23 07:58
Insulin Aspart (100 Units/Ml) 3 Ml Flexpen SC 08/04/23 18:59 5 units
AC RELL Administration
Levalbuterol HCl 0.63 mg 07/10/23 04:59
Levalbuterol 0.63 Mg/3 Ml Ampul INH 08/07/23 04:58
R Q6HPRN PRN
SOB or wheezing
Protocol
Lidocaine 2 patch 07/08/23 11:15 07/10/23 07:57
Lidocaine 4% Topical Patch TOPICAL 08/05/23 11:14 2 patch
DAILY RELL Administration
Lisinopril 5 mg 07/08/23 08:00 07/10/23 07:57
Lisinopril 5 Mg Tablet PO 08/05/23 07:59 5 mg
DAILY RELL Administration
Magnesium Oxide 500 mg 07/08/23 08:00 07/10/23 07:56
Magnesium Oxide 500 Mg Tablet PO 08/05/23 07:59 500 mg
DAILY RELL Administration
Miconazole Nitrate 0 applic 07/07/23 20:00 07/10/23 07:57
Miconazole Powder Bottle TOPICAL 08/04/23 19:59 1 applic
BID RELL Administration
Patch Removal 2 patch 07/08/23 11:40 07/09/23 20:20
Remove Lidocaine Patch REMOVE 08/04/23 21:59 2 patch
DAILY@2000 RELL Administration
Saccharomyces Boulardii 250 mg 07/08/23 08:00 07/10/23 08:11
Saccharomyces Boulardi (Florastor) 250 Mg Capsule PO 08/05/23 07:59 250 mg
DAILY RELL Administration
Senna/Docusate Sodium 2 tablet 07/07/23 20:00 07/10/23 08:11
Docusate W/Senna (Gissell-Colace) Tablet PO 08/04/23 19:59 2 tablet
BID RELL Administration
Sodium Chloride 0 flush 07/07/23 16:00 07/08/23 06:30
Sodium Chloride 0.9% (Flush) Syringe IV 08/04/23 15:59 2 flush
PER PROTOCOL RELL Administration
Home Medications
Medication Instructions Recorded
Saccharomyces boulardii 250 mg 250 mg PO DAILY Gastrointestinal 06/21/23
capsule (Probiotic (S.boulardii)) Issue
acetaminophen 500 mg tablet 1,000 mg PO Q8HPRN PRN mild pain 06/21/23
(Tylenol Extra Strength)
bisacodyl 10 mg rectal suppository 10 mg AL DAILYPRN PRN if no 06/21/23
results for MOM
carvedilol 6.25 mg tablet 6.25 mg PO BID Blood Pressure 06/21/23
cefazolin 2 gram/100 mL in 0.9 % 100 ml IV Q8H Infection 06/21/23
sodium chloride intravenous
solution
insulin glargine 100 unit/mL 25 unit SC DAILY Diabetes 06/21/23
subcutaneous solution
ipratropium 0.5 mg-albuterol 3 mg 3 ml inhalation R Q4HPRN PRN 06/21/23
(2.5 mg base)/3 mL nebulization wheezing
soln
lisinopril 10 mg tablet 5 mg PO DAILY Blood Pressure 06/21/23
magnesium hydroxide 400 mg/5 mL 30 ml PO HSPRN PRN if no BM x 3 06/21/23
oral suspension (Milk of Magnesia) days
alprazolam 0.25 mg tablet (Xanax) 0.25 mg PO Q8HPRN PRN anxiety 07/07/23
ascorbic acid (vitamin C) 500 mg 500 mg PO DAILY Supplement 07/07/23
tablet (Vitamin C)
baclofen 5 mg tablet 5 mg PO HS Muscle Spasms 07/07/23
bisacodyl 5 mg tablet,delayed 10 mg PO DAILYPRN PRN constipation 07/07/23
release (Dulcolax (bisacodyl))
cholecalciferol (vitamin D3) 50 50 mcg PO DAILY Supplement 07/07/23
mcg (2,000 unit) tablet (Vitamin
D3)
docusate sodium 100 mg capsule 100 mg PO BID Constipation 07/07/23
(Colace)
ferrous sulfate 325 mg (65 mg 325 mg PO DAILY Supplement 07/07/23
iron) tablet
furosemide 40 mg tablet (Lasix) 40 mg PO DAILY Fluid 07/07/23
Retention/Swelling
heparin lock flush (porcine) 10 5,000 unit IV TID@0600,1400,2200 07/07/23
unit/mL intravenous solution Blood Clot Prevention/Tx
heparin, porcine (PF) 100 unit/mL 500 unit IV TID@0000,0800,1600 07/07/23
intravenous syringe PORT FLUSH
insulin aspart U-100 100 unit/mL 5 unit SC AC Diabetes 07/07/23
(3 mL) subcutaneous pen (Novolog
FlexPen U-100 Insulin aspart)
lidocaine 4 % topical patch 1 patch topical DAILY Left shoulder 07/07/23
magnesium oxide 500 mg PO DAILY Supplement 07/07/23
sennosides 8.6 mg-docusate sodium 1 tab PO BIDPRN PRN constipation 07/07/23
50 mg tablet (Stool
Softener-Stimulant Laxative)
simethicone 80 mg chewable tablet 80 mg PO TIDPRN PRN gerd 07/07/23
Vital Signs and Labs
-
Vital Signs and Labs:
Vital Signs
Temp Pulse Resp BP Pulse Ox
36.7 C 93 20 115/74 93
07/10/23 08:00 07/10/23 08:00 07/10/23 08:00 07/10/23 08:00 07/10/23 10:13
Lab Results
07/10/23 04:36
07/10/23 04:36
PT 15.5 Sec (11.4-14.6) H 07/07/23 14:48
INR 1.25 07/07/23 14:48
APTT 73.5 Sec (23.4-35.0) H 07/10/23 04:36
Sodium 133 mmol/L (135-145) L 07/10/23 04:36
Potassium 4.1 mmol/L (3.5-5.1) 07/10/23 04:36
BUN 31 mg/dl (9-20) H 07/10/23 04:36
Glucose 142 mg/dl (70-99) H 07/10/23 04:36
Calcium 8.6 mg/dl (8.4-10.2) 07/10/23 04:36
Psk-N-Jqjeghsmexs Pept 5410 pg/ml 07/08/23 04:17
Home Medications
-
Home Medications
Saccharomyces boulardii 250 mg capsule (Probiotic (S.boulardii)) 250 mg PO DAILY Gastrointestinal Issue 06/21/23
acetaminophen 500 mg tablet (Tylenol Extra Strength) 1,000 mg PO Q8HPRN PRN mild pain 06/21/23
bisacodyl 10 mg rectal suppository 10 mg AL DAILYPRN PRN if no results for MOM 06/21/23
carvedilol 6.25 mg tablet 6.25 mg PO BID Blood Pressure 06/21/23
cefazolin 2 gram/100 mL in 0.9 % sodium chloride intravenous solution 100 ml IV Q8H Infection 06/21/23
insulin glargine 100 unit/mL subcutaneous solution 25 unit SC DAILY Diabetes 06/21/23
ipratropium 0.5 mg-albuterol 3 mg (2.5 mg base)/3 mL nebulization soln 3 ml inhalation R Q4HPRN PRN wheezing 06/21/23
lisinopril 10 mg tablet 5 mg PO DAILY Blood Pressure 06/21/23
magnesium hydroxide 400 mg/5 mL oral suspension (Milk of Magnesia) 30 ml PO HSPRN PRN if no BM x 3 days 06/21/23
alprazolam 0.25 mg tablet (Xanax) 0.25 mg PO Q8HPRN PRN anxiety 07/07/23
ascorbic acid (vitamin C) 500 mg tablet (Vitamin C) 500 mg PO DAILY Supplement 07/07/23
baclofen 5 mg tablet 5 mg PO HS Muscle Spasms 07/07/23
bisacodyl 5 mg tablet,delayed release (Dulcolax (bisacodyl)) 10 mg PO DAILYPRN PRN constipation 07/07/23
cholecalciferol (vitamin D3) 50 mcg (2,000 unit) tablet (Vitamin D3) 50 mcg PO DAILY Supplement 07/07/23
docusate sodium 100 mg capsule (Colace) 100 mg PO BID Constipation 07/07/23
ferrous sulfate 325 mg (65 mg iron) tablet 325 mg PO DAILY Supplement 07/07/23
furosemide 40 mg tablet (Lasix) 40 mg PO DAILY Fluid Retention/Swelling 07/07/23
heparin lock flush (porcine) 10 unit/mL intravenous solution 5,000 unit IV TID@0600,1400,2200 Blood Clot Prevention/Tx 07/07/23
heparin, porcine (PF) 100 unit/mL intravenous syringe 500 unit IV TID@0000,0800,1600 PORT FLUSH 07/07/23
insulin aspart U-100 100 unit/mL (3 mL) subcutaneous pen (Novolog FlexPen U-100 Insulin aspart) 5 unit SC AC Diabetes 07/07/23
lidocaine 4 % topical patch 1 patch topical DAILY Left shoulder 07/07/23
magnesium oxide 500 mg PO DAILY Supplement 07/07/23
sennosides 8.6 mg-docusate sodium 50 mg tablet (Stool Softener-Stimulant Laxative) 1 tab PO BIDPRN PRN constipation 07/07/23
simethicone 80 mg chewable tablet 80 mg PO TIDPRN PRN gerd 07/07/23
Medications
-
Medications:
Generic Name Dose Route Start Last Admin
Trade Name Freq PRN Reason Stop Dose Admin
Acetaminophen 1,000 mg 07/07/23 19:52 07/10/23 03:46
Acetaminophen 500 Mg Tablet PO 08/04/23 19:51 1,000 mg
Q8HPRN PRN Administration
mild pain/fever
Alprazolam 0.25 mg 07/07/23 19:52 07/10/23 01:42
Alprazolam 0.25 Mg Tablet PO 08/04/23 19:51 0.25 mg
Q8HPRN PRN Administration
anxiety
Baclofen 5 mg 07/07/23 22:00 07/09/23 22:30
Baclofen 5 Mg Tablet PO 08/04/23 21:59 5 mg
HS RELL Administration
Bisacodyl 5 mg 07/09/23 09:47 07/09/23 10:57
Bisacodyl 5 Mg Enteric Coated Tablet PO 08/06/23 09:46 5 mg
DAILYPRN PRN Administration
constipation
Carvedilol 6.25 mg 07/07/23 20:00 07/10/23 07:58
Carvedilol 6.25 Mg Tablet PO 08/04/23 19:59 Not Given
BID RELL
Dextrose 12.5 grams 07/07/23 19:52
Dextrose 50% (0.5 Grams/Ml) 50 Ml Syringe IV 08/04/23 19:51
[id number] PRN
hypoglycemia
Protocol
Famotidine 20 mg 07/08/23 20:00 07/10/23 07:56
Famotidine 20 Mg Tablet PO 08/05/23 19:59 20 mg
BID RELL Administration
Ferrous Sulfate 325 mg 07/08/23 08:00 07/10/23 08:36
Ferrous Sulfate 325 Mg Tablet PO 08/05/23 07:59 Not Given
DAILY RELL
Furosemide 40 mg 07/07/23 19:52 07/10/23 04:04
Furosemide 40 Mg (10 Mg/Ml) 4 Ml Vial IV 08/04/23 19:51 40 mg
BID AT 0800,1600 RELL Administration
Glucagon 1 mg 07/07/23 19:52
Glucagon 1 Mg Vial IM 08/04/23 19:51
PRN PRN
hypoglycemia
Protocol
Heparin Sodium 10,000 units 07/07/23 14:39 07/08/23 10:59
Heparin 80 Units/Kg Iv Rebolus IV 08/04/23 14:38 10,000 units
PRN PRN Administration
PTT < OR = 64 seconds
Heparin Sodium 5,000 units 07/07/23 14:40 07/09/23 10:56
Heparin 40 Units/Kg Iv Rebolus IV 08/04/23 14:39 5,000 units
PRN PRN Administration
PTT = 64.1 to 72.9 seconds
Heparin Sodium 25,000 units in 250 mls @ 0 mls/hr 07/07/23 14:15 07/10/23 06:41
Heparin 75382 Units/250 Ml IV 250 mls
PER PROTOCOL RELL Administration
Protocol
Per Protocol
Cefazolin Sodium 2 grams in 10 mls @ 120 mls/hr 07/07/23 22:00 07/10/23 06:36
Ancef IV 10 mls
Q8H RELL Administration
Insulin Glargine 25 units/ 0.25 mls @ 0 mls/hr 07/08/23 08:00 07/10/23 08:01
Device SC 08/05/23 07:59 0.25 mls
DAILY RELL Administration
As Directed
Insulin Aspart 0 units 07/07/23 18:25 07/10/23 07:57
Insulin Aspart Low Resistance 300 Units/3 Ml Pen.Injctr SC 08/04/23 18:24 Not Given
AC RELL
Protocol
Insulin Aspart 5 units 07/07/23 19:00 07/10/23 07:58
Insulin Aspart (100 Units/Ml) 3 Ml Flexpen SC 08/04/23 18:59 5 units
AC RELL Administration
Levalbuterol HCl 0.63 mg 07/10/23 04:59
Levalbuterol 0.63 Mg/3 Ml Ampul INH 08/07/23 04:58
R Q6HPRN PRN
SOB or wheezing
Protocol
Lidocaine 2 patch 07/08/23 11:15 07/10/23 07:57
Lidocaine 4% Topical Patch TOPICAL 08/05/23 11:14 2 patch
DAILY RELL Administration
Lisinopril 5 mg 07/08/23 08:00 07/10/23 07:57
Lisinopril 5 Mg Tablet PO 08/05/23 07:59 5 mg
DAILY RELL Administration
Magnesium Oxide 500 mg 07/08/23 08:00 07/10/23 07:56
Magnesium Oxide 500 Mg Tablet PO 08/05/23 07:59 500 mg
DAILY RELL Administration
Miconazole Nitrate 0 applic 07/07/23 20:00 07/10/23 07:57
Miconazole Powder Bottle TOPICAL 08/04/23 19:59 1 applic
BID RELL Administration
Patch Removal 2 patch 07/08/23 11:40 07/09/23 20:20
Remove Lidocaine Patch REMOVE 08/04/23 21:59 2 patch
DAILY@2000 RELL Administration
Saccharomyces Boulardii 250 mg 07/08/23 08:00 07/10/23 08:11
Saccharomyces Boulardi (Florastor) 250 Mg Capsule PO 08/05/23 07:59 250 mg
DAILY RELL Administration
Senna/Docusate Sodium 2 tablet 07/07/23 20:00 07/10/23 08:11
Docusate W/Senna (Gissell-Colace) Tablet PO 08/04/23 19:59 2 tablet
BID RELL Administration
Sodium Chloride 0 flush 07/07/23 16:00 07/08/23 06:30
Sodium Chloride 0.9% (Flush) Syringe IV 08/04/23 15:59 2 flush
PER PROTOCOL RELL Administration
[2023-07-10 11:55] VITALS: BP 121/75; PULSE 97; O2SAT 98
--- NOTE | 2023-07-10 11:56 | W.PN.CARDCBS ---
Addendum entered and electronically signed by Robin Graf MD 07/10/23 14:46:
I saw and examined the patient.
The YIELD ENGINEER or PA's note was reviewed and I agree with the note.
Comment: General: Well developed, well nourished in NAD.
Neck: Supple, no JVD, HJR, carotids +2 B/L, no bruits bilaterally.
Heart: Non displaced PMI, RRR, no murmurs, No S3, S4, no rubs.
Lungs: Scattered rhonchi at the bases
Extremities: No clubbing, cyanosis or edema bilaterally.
Neuro: Grossly nonfocal, awake, alert and oriented x3.
Episode of respiratory decompensation earlier today. Likely an element of CHF. Continue IV Lasix. Ejection fraction 40% which is similar to prior studies at [place] per . Discussed with patient and in detail. Remains anemic but stable
Original Note:
Today's Communication / Plan
-
Continue IV diuresis for another 24 hours
Monitor renal function and electrolytes
Impression / Plan
-
PCP: None
Medical Insurance Coding Specialist: None, saw cardiology at [facility] but does not recall name
Impression:
Presented 07/07/2023 with SOB
Bilateral pulmonary emboli by CT scan 07/07/2023
Acute on chronic HFrEF, proBNP 5410
Bilateral pleural effusions
s/p LEFT thoracentesis 07/07/23 with transudative effusion
Anemia
Infective endocarditis treated at [facility], now on cefazolin
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
diabetes with recent diabetic ketoacidosis
Hypertension
Morbid obesity
Right upper extremity superficial thrombophlebitis related to PICC line 2023
Anemia
Echo 07/09/2023: EF 40 to 45%, global hypokinesis, mild concentric LVH. Mild aortic stenosis peak/mean gradient 20/13 mmHg with MADI 1.1 cm�. Ascending aorta dilation.
Plan:
-Presented 07/07/2023 with worsening SOB.
-Noted to have bilateral pulmonary emboli on Chest CT. Now on IV Heparin with plan of transitioning to OAC.
-Reviewed events of overnight 07/10/23 in early am pt c/o SOB and was hypoxic overnight requiring oxygen but now back on room air and feeling much better.
-Chest CT small bilateral effusions, Rt. Lt s/p LEFT thoracentesis 07/07/23 with transudative effusion
-Still appears volume overload on exam and CXR 07/10 still with mild interstitial pulmonary edema. Continue IV Lasix for at least an additional 24 hours
-Echo from 07/09/23 as noted above EF 40-45% with mild .
-Continue Coreg, Lisinopril. Consider addition of Aldactone if BP allows
-Creat stable 1.2
-Neurology recommended MRI given recent embolic strokes but pt unable to lye in MRI machine due to claustrophobia.
-Ongoing anemia, stable at 8.1
Discussed with patient and family, at bedside
Attempting to obtain records from [place].
Admit HPI data 07/07/2023:
52-year-old man who was hospitalized at [facility] with infective endocarditis at the end of 2022 or beginning of 2023.� In this setting he had a stroke with right hemiparesis and was admitted to [facility] from rehab on May
with progressive weakness fatigue and orthostasis in the setting of diarrhea.� He was transferred to [facility] on June 26 and is readmitted now with heart failure.� Now found to have a pulmonary embolus, small bilateral
Progress Note - Medical Insurance Coding Specialist
Subjective
Date of Service: July 10, 2023
Patient seen and examined. at bedside. Events from overnight reviewed with patient complained of shortness of breath and was found to be hypoxic. Now on room air and feels much better.
Objective
Labs:
07/10/23 04:36
07/10/23 04:36
Labs
Hgb 8.1 g/dL (13.0-18.0) L 07/10/23 04:36
Hct 23.9 % (39.0-52.0) L 07/10/23 04:36
Plt Count 156 10^3/uL (130-400) 07/10/23 04:36
PT 15.5 Sec (11.4-14.6) H 07/07/23 14:48
INR 1.25 07/07/23 14:48
APTT 73.5 Sec (23.4-35.0) H 07/10/23 04:36
Sodium 133 mmol/L (135-145) L 07/10/23 04:36
Potassium 4.1 mmol/L (3.5-5.1) 07/10/23 04:36
BUN 31 mg/dl (9-20) H 07/10/23 04:36
Creatinine 1.2 mg/dL (0.7-1.3) 07/10/23 04:36
Glucose 142 mg/dl (70-99) H 07/10/23 04:36
Troponins
07/08/23 07/10/23
04:17 04:36
Troponin I 0.023 0.019
Vital Signs and I&O:
Vital Signs
Temp Pulse Resp BP Pulse Ox
98.1 F 93 20 115/74 93
07/10/23 08:00 07/10/23 08:00 07/10/23 08:00 07/10/23 08:00 07/10/23 10:13
Vital Signs
Temp Pulse Resp BP Pulse Ox
98.1 F 93 20 115/74 93
07/10/23 08:00 07/10/23 08:00 07/10/23 08:00 07/10/23 08:00 07/10/23 10:13
Intake & Output
07/08/23 07/09/23 07/10/23 07/11/23
06:59 06:59 06:59 06:59
Intake Total 480 / 480
Output Total 3050 / 3050 1200 / 1200 2700 / 2700
Balance -2570 / -2570 -1200 / -1200 -2700 / -2700
Physical Exam
Physical Exam
GEN: No distress, awake, Ox3, obese, sitting in bed
HEENT: supple, anicteric, mmm
LUNGS: decreased at carina bases otherwise CTA, no wheezes/rales
CV: Reg, S1/S2, 1/6 syst murmur
ABD: soft, BS+, NT/ND
EXT: +1-2 LE edema
NEURO: right sided weakness
SKIN: scratches/scabs noted on legs
--- NOTE | 2023-07-10 11:58 | W.PN.HOSP.TC ---
Addendum entered and electronically signed by Alec Mccarty MD 07/10/23 18:17:
Patient seen and examined
Discussed with resident
Discussed with cardiology and neurology
Acute hypoxic respiratory insufficiency multifactorial due to decompensated CHF/cardiomyopathy as well as bilateral pulmonary embolism.
Subjective shortness of breath over the last night noted.
Current respiratory status stable saturating at 98% on 2 L of nasal cannula.
Repeated ABG consistent with respiratory alkalosis possibly component of anxiety.
Follow-up chest x-ray with minimal bilateral pleural effusion and pulmonary edema.
Repeat echocardiogram with LVEF of 40-45% global hypokinesis, LVH, mild aortic stenosis.
Continue IV diuresis.
Continue anticoagulation transitioning to oral/Eliquis
Continue physical therapy
Continue IV antibiotics to complete course for infective endocarditis
Original Note:
Today's Communication/Plan
-
Continue diuresis with IV Lasix 40 mg
Switch anticoagulation from IV heparin to Eliquis 10 mg twice daily for 7 days and continue 5 mg twice daily
PT/OT
Continue cefazolin
Assessment / Plan
Assessment / Plan
Impression:
Acute hypoxic respiratory insufficiency.
Acute on chronic CHF reduced EF.
Left pleural effusion. Plan�status post thoracentesis 07/07 500 mL.
Acute bilateral pulmonary embolism.
Conditions prior to admission:
Infective endocarditis treated at [facility] with cefazolin.
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
IDDM with recent DKA.
Essential hypertension baseline morbid obesity BMI of 36.
Right upper extremity superficial thrombophlebitis to peak
2023.
Anemia of chronic disease.
Plan:
Bilateral Pleural Effusion secondary to Acute Heart Failure
-Fluid overload consistent with anasarca marked weight gain last month
-S/p left thoracocentesis 07/07/2023 with transudative effusion (right-sided thoracentesis with 500 cc)
-Fluid analysis looks to be transudative
-Follow-up chest ultrasound: Small bilateral pleural effusions, right greater than left.
-Follow-up chest x-ray: No pneumothorax, stable cardiomediastinal silhouette
-Continue Lasix 40mg IV BID for additional 24 hours given patient's bilateral interstitial pulmonary edema
-Monitor Is&Os and Daily Weight
Bilateral Pulmonary Emboli
-Lower extremity Doppler negative for DVT
-CT head 06/17 with multiple ill-defined hypoattenuating lesions with the right cerebellum, right hemipons, right occipital lobe, likely infective of acute to subacute infarcts
-Recent embolic CVA in the settings of endocarditis with right hemiparesis
-Unable to obtain MRI due to patient's claustrophobia
-Stop heparin, start anticoagulation with Eliquis 10 mg twice daily for 7 days then continue 5 mg twice daily
-Repeated echocardiogram with normal left ventricular chamber size and left ventricular ejection fraction 40 to 45%
-Neurology input appreciated
-Cardiology input appreciated
Infective Endocarditis
-Continue Ancef as prior to admission/through July 21
-Consider infectious disease input early next week
Embolic CVA with Right Hemiparesis
CT head 06/17 with multiple ill-defined hypoattenuating lesions with the right cerebellum, right hemipons, right occipital lobe, likely infective of acute to subacute infarcts. Prior to transition to oral anticoagulation we will check an MRI.
Consider neurology evaluation
-Continue PT/OT
-Continue baclofen
Essential Hypertension
-Continue Coreg and Lisinopril with hold parameters
Diabetes Mellitus, Type II
-HgbA1c 11.3 in May 2023
-Continue Glargine and Novolog
-Monitor sugars and continue coverage insulin
Chronic Anemia
-Check iron studies, vitamin b12 and folate
Anxiety
-Continue alprazolam prn
Yeast appearing rash in the scrotal region
-Local care and nystatin powder
-Scrotal elevation when possible
-Hopefully will improve with diuresis
Code Status: Full Code�
Anticipated Discharge: > 48 hours
Subjective/Interval History
-
Date of Service: July 10, 2023
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 Pt states he began experiencing shortness of breath last night while trying to
defecate. He states he reported this to his nurse at [facility] and was told to wait until the morning. He states his symptoms did not resolve with positional changes and worsened this morning. He had a Chest CT which revealed small bilateral
pulmonary emboli and large bilateral pleural effusions which prompted staff to send him to the emergency department for evaluation. Patient denies prior history of heart failure, but admits to 2 mg twice daily for 7 days and then continue 5 mg twice
daily edema and 30lb weight gain.�
Today patient states that he is feeling better, but has recently abdominal pain that is diffuse rated 3/10 and does not radiate. Patient states that he is obstructed and has been passing liquid stool for the first 5 days. He stated that using enema
has helped him to clear his bowel.
Objective Data
-
Labs:
Laboratory Results
07/09/23 07/10/23 07/10/23
23:15 04:34 04:36
WBC 6.8
Hgb 8.1 L
Hct 23.9 L
Plt Count 156
APTT 96.6 H 73.5 H
HCO3 32.8 H
Sodium 133 L
Potassium 4.1
Chloride 96 L
Carbon Dioxide 32 H
BUN 31 H
Creatinine 1.2
Glucose 142 H
Calcium 8.6
07/10/23
07:45
WBC
Hgb
Hct
Plt Count
APTT
HCO3 34.9 H
Sodium
Potassium
Chloride
Carbon Dioxide
BUN
Creatinine
Glucose
Calcium
Vital Signs:
Vital Signs
Temp Pulse Resp BP Pulse Ox
98.1 F 93 20 115/74 93
07/10/23 08:00 07/10/23 08:00 07/10/23 08:00 07/10/23 08:00 07/10/23 10:13
I&O
07/09/23 07/10/23 07/11/23
06:59 06:59 06:59
Output Total 1200 / 1200 2700 / 2700
Balance -1200 / -1200 -2700 / -2700
Review of Systems
-
History Source: Patient
All other systems: Not reviewed unless documented
Constitutional: Reports Weight Gain and Fatigue
EENT: Reports No Symptoms Reported
Respiratory: Denies Cough, Trouble Breathing (Improved) or Wheezing
Cardiac: Reports No Symptoms; Denies Chest Pain or Palpitations
Abdomen/GI: Reports Abdominal Pain
Genitourinary: Reports No Symptoms
Musculoskeletal: Reports No Symptoms
Skin: Reports No Symptoms
Physical Exam
-
General: Well Developed and No Apparent Distress
HEENT: Normocephalic, Atraumatic and Moist Mucous Membranes
Respiratory: Clear to Auscultation
Cardiac: Regular Rhythm and S1/S2; Negative Murmur, Rub or Gallop
GI: Soft, Nontender, Nondistended and Normal Bowel Sounds; Negative Organomegaly
Rectal: Deferred by Provider
Musculoskeletal: No Clubbing, No Cyanosis and No Edema
Skin: Warm and Dry; Negative Rash
Neuro: Awake, Alert, Oriented, AO x 3 and Other (Right upper extremity weakness)
Data Reviewed
-
Diagnostic Radiology: Image personally visualized and interpreted, Report Reviewed by me and Discussed with Physician
CT Scan: Image personally visualized and interpreted, Report Reviewed by me and Discussed with Physician
Ultrasound: Image personally visualized and interpreted, Report Reviewed by me and Discussed with Physician
Labs: Labs Reviewed by me and Discussed with Physician
Old Records: Reviewed
[2023-07-10 12:44] LABS: Glucose - Point of Care 110 mg/dl (70-99)
--- NOTE | 2023-07-10 13:36 | CM ---
CM following re: discharge planning.
Reviewed pt's chart, met with pt.
PT and OT evaluations noted - outpatient PT/OT recommended. Pt is aware, expressed his agreement.
Please provide a script for outpatient PT/OT at discharge.
D/C plan: home with outpatient PT/OT and family support. Family to transport at discharge.
CM will follow with discharge plan updates as hospitalization progresses
--- NOTE | 2023-07-10 15:47 | CM ---
Chart reviewed and per notes patient will not require acute rehab, plan will be to home, patient would benefit form visiting nurses, [facility] have been contacted for home infusion, case resolution specialist will check on progress, Patient has been set up for
[facility] with [facility], appointment on July 30 for PT/OT/Speech.
Plan; Message left with [facility] to check on status of referral.
[2023-07-10 16:00] VITALS: BP 150/95
[2023-07-10 16:57] VITALS: BMI 35.4
[2023-07-10] MEDS: NOVOLOG FLEXPEN SC (18:07)
[2023-07-10 18:13] LABS: Glucose - Point of Care 70 mg/dl (70-99)
--- NOTE | 2023-07-10 18:29 | PTCARENOTE ---
Pt more calm as day went on. Walked the halls twice w/ assist of 1 and RW. Pt continued w/ loose/watery brown stool, at times incontinent. Ab pain reported 8/10 1g PO Tylenol given w/ some relief.
[2023-07-10] MEDS: ELIQUIS 10 MG PO (20:22)
[2023-07-10] MEDS: SENOKOT-S PO (20:30)
[2023-07-10] MEDS: LIORESAL 5 MG PO (21:15)
[2023-07-10 21:35] LABS: Glucose - Point of Care 163 mg/dl (70-99)
[2023-07-10 23:55] VITALS: BP 148/102
[2023-07-11 05:04] LABS: % Basophils 0.2 % (0-2); % Eosinophils 0.6 % (0-6); % Immature Granulocytes 0.6 % (0-0.5); % Lymphocytes 19.4 % (20.5-51.1); % Neutrophils 69.2 % (42.2-75.2); Absolute Monocytes 0.5 10^3/uL (0.1-0.6); Absolute Neutrophils 3.5 10^3/uL (1.4-6.5); Hematocrit 24.4 % (39.0-52.0); Hemoglobin 7.9 g/dL (13.0-18.0); Mean Corp Hgb Conc. 32.4 g/dL (33.0-37.0); Mean Corpuscular Hgb 30.4 pg (27.0-31.0); Mean Corpuscular Volume 93.8 fL (80.0-94.0); Nucleated Red Blood Cells % 0 % (-); Platelet Count 153 10^3/uL (130-400); Red Cell Dist. Width 14.3 % (11.5-14.5)
[2023-07-11 05:11] LABS: APTT 53.6 Sec (23.4-35.0)
[2023-07-11 05:34] LABS: Blood Urea Nitrogen 28 mg/dl (9-20); Calcium 8.7 mg/dl (8.4-10.2); Carbon Dioxide 33 mmol/L (22-30); Chloride 96 mmol/L (98-107); Estimated Creatinine Clearance 91 ml/min; Glucose 108 mg/dl (70-99); Sodium 136 mmol/L (135-145); eGFR > 60.00
[2023-07-11] MEDS: ANCEF 10 IV ×3 (06:25→22:00)
[2023-07-11 07:22] VITALS: BMI 35.2
[2023-07-11 07:30] VITALS: BP 143/98
[2023-07-11 07:34] LABS: Glucose - Point of Care 119 mg/dl (70-99)
[2023-07-11] MEDS: NOVOLOG FLEXPEN 5 UNITS SC ×3 (08:13→17:51)
[2023-07-11] MEDS: NOVOLOG FLEXPEN-LOW RESISTANCE SC ×2 (08:14→17:14)
[2023-07-11] MEDS: COREG 6.25 MG PO (08:17)
[2023-07-11] MEDS: FEOSOL 325 MG PO (08:18)
[2023-07-11] MEDS: MAGNESIUM OXIDE 500 MG PO (08:19)
[2023-07-11] MEDS: FLORASTOR 250 MG PO (08:19)
[2023-07-11] MEDS: PEPCID 20 MG PO ×2 (08:20→20:10)
[2023-07-11] MEDS: ZESTRIL 5 MG PO (08:20)
[2023-07-11] MEDS: LANTUS 0.25 UNITS SC (08:21)
[2023-07-11] MEDS: ELIQUIS 10 MG PO ×2 (08:21→20:10)
[2023-07-11] MEDS: LIDOCAINE 4% PATCH 2 PATCH TOPICAL (08:24)
[2023-07-11] MEDS: LASIX 40 MG IV (08:25)
[2023-07-11] MEDS: SENOKOT-S PO ×2 (08:33→20:15)
[2023-07-11] MEDS: DESENEX/MITRAZOL/ZEASORB 1 APPLIC TOPICAL ×2 (08:33→20:10)
--- NOTE | 2023-07-11 09:46 | W.PN.CARDCBS ---
Addendum entered and electronically signed by Melvin Ricketts MD 07/11/23 12:30:
I saw and examined the patient.
The Forensics Analyst's note was reviewed and I agree with the note.
Comment:
GEN: No distress, awake, Ox3
HEENT: supple, anicteric, mmm
LUNGS: CTA, no wheezes/rales
CV: Reg, S1/S2, 1/6 syst LSB, no gallop
ABD: soft, BS+, NT/ND
EXT: No edema
NEURO: Gross non-focal
SKIN: No rash
Plan:
Continue Coreg and lisinopril. Start Aldactone 12.5 mg daily. Will switch to Lasix 40 mg daily.
Continue Eliquis for PE dosing.
Original Note:
Today's Communication / Plan
-
Transition to lasix PO 40 mg daily in AM
Start spironolactone 12.5mg daily
Continue coreg and lisinopril
Follow up arranged
Impression / Plan
-
PCP: None
[employer]: None, saw cardiology at [facility] but does not recall name
Impression:
Presented 07/07/2023 with SOB
Bilateral pulmonary emboli by CT scan 07/07/2023
Acute on chronic HFrEF, proBNP 5410
Bilateral pleural effusions
s/p LEFT thoracentesis 07/07/23 with transudative effusion
Anemia
Infective endocarditis treated at [facility], now on cefazolin
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
diabetes with recent diabetic ketoacidosis
Hypertension
Morbid obesity
Right upper extremity superficial thrombophlebitis related to PICC line 2023
Anemia
Echo 07/09/2023: EF 40 to 45%, global hypokinesis, mild concentric LVH. Mild aortic stenosis peak/mean gradient 20/13 mmHg with MADI 1.1 cm�. Ascending aorta dilation.
Plan:
-Presented 07/07/2023 with worsening SOB. Noted to have bilateral pulmonary emboli on Chest CT.
-Transitioned to Eliquis for anticoagulation starting in PM on 07/10.
-Volume status improving w/ diuresis, will transition to PO lasix 40mg daily in AM.
-Weight is down at least 12lbs this admission, down to 252lbs on 07/11. Creat stable at 1.2.
-Echo from 07/09/23 as noted above EF 40-45% with mild .
-Continue Coreg, Lisinopril. Will also start spironolactone 12.5mg daily.
-Neurology recommended MRI given recent embolic strokes but pt unable to lie in MRI machine due to claustrophobia.
-Follow up w/ [facility] arranged
Admit HPI data 07/07/2023: 52-year-old man who was hospitalized at [facility] with infective endocarditis at the end of 2022 or beginning of 2023.� In this setting he had a stroke with right hemiparesis and was admitted to [place] [facility] from rehab on June 21 with progressive weakness fatigue and orthostasis in the setting of diarrhea.� He was transferred to [place] on June 26 and is readmitted now with heart failure.� Now found to have a pulmonary embolus, small
bilateral
Progress Note - [employer]
Subjective
Date of Service: July 11, 2023
Feeling better. No SOB.
Objective
Labs:
07/11/23 04:51
07/11/23 04:51
Labs
Hgb 7.9 g/dL (13.0-18.0) L 07/11/23 04:51
Hct 24.4 % (39.0-52.0) L 07/11/23 04:51
Plt Count 153 10^3/uL (130-400) 07/11/23 04:51
PT 15.5 Sec (11.4-14.6) H 07/07/23 14:48
INR 1.25 07/07/23 14:48
APTT 53.6 Sec (23.4-35.0) H 07/11/23 04:51
Sodium 136 mmol/L (135-145) 07/11/23 04:51
Potassium 4.0 mmol/L (3.5-5.1) 07/11/23 04:51
BUN 28 mg/dl (9-20) H 07/11/23 04:51
Creatinine 1.2 mg/dL (0.7-1.3) 07/11/23 04:51
Glucose 108 mg/dl (70-99) H 07/11/23 04:51
Troponins
07/10/23
04:36
Troponin I 0.019
Vital Signs and I&O:
Vital Signs
Temp Pulse Resp BP Pulse Ox
97.7 F 90 20 143/98 97
07/11/23 07:30 07/11/23 08:17 07/11/23 07:30 07/11/23 08:17 07/11/23 07:30
Vital Signs
Temp Pulse Resp BP Pulse Ox
97.7 F 90 20 143/98 97
07/11/23 07:30 07/11/23 08:17 07/11/23 07:30 07/11/23 08:17 07/11/23 07:30
Intake & Output
07/09/23 07/10/23 07/11/23 07/12/23
06:59 06:59 06:59 06:59
Intake Total 360 / 360
Output Total 1200 / 1200 2700 / 2700 2200 / 2200
Balance -1200 / -1200 -2700 / -2700 -1840 / -1840
Physical Exam
Physical Exam
GEN: No distress, awake, alert, oriented x3
HEENT: supple, anicteric, mmm
LUNGS: CTA b/l, no wheezes/rales
CV: Reg, S1/S2, 1/6 syst murmur
ABD: soft, BS+, NT/ND
EXT: Trace LE edema
NEURO: right sided weakness
SKIN: scratches/scabs noted on legs
[2023-07-11 11:53] VITALS: BP 133/87
[2023-07-11 12:15] LABS: Glucose - Point of Care 156 mg/dl (70-99)
[2023-07-11] MEDS: NOVOLOG FLEXPEN-LOW RESISTANCE 1 UNITS SC (12:24)
[2023-07-11] MEDS: XANAX 0.25 MG PO (12:26)
[2023-07-11] MEDS: ALDACTONE 12.5 MG PO (12:26)
--- NOTE | 2023-07-11 15:55 | W.PN.HOSP.TC ---
Addendum entered and electronically signed by Alec Mccarty MD 07/11/23 17:54:
Patient seen and examined
Discussed with resident
Acute CHF reduced EF
Acute pulmonary edema
Pleural effusion status post right thoracentesis with no evidence for reaccumulation
Transition to oral Lasix with addition of Aldactone
Continue cardiovascular regimen as recommended
Bilateral PE.
Continue anticoagulation transition to oral with Eliquis.
Endocarditis
To complete course of antibiotic therapy through 07/21.
Discharge planing home with home infusion
Original Note:
Today's Communication/Plan
-
Continue Coreg and lisinopril.�
Continue Aldactone 12.5 mg daily.�
Consider switching to Lasix 40 mg daily in a.m.
Continue Eliquis for PE dosing.
Assessment / Plan
Assessment / Plan
Impression:
Resolved acute hypoxic respiratory insufficiency
Current respiratory status stable saturating at 99% on room air.
In no acute respiratory distress.
Conditions prior to admission:
Infective endocarditis treated at [facility] with cefazolin.
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
IDDM with recent DKA.
Essential hypertension baseline morbid obesity BMI of 36.
Right upper extremity superficial thrombophlebitis to peak
2023.
Anemia of chronic disease.
Plan:
Acute hypoxic respiratory insufficiency
-Resolved, multifactorial due to decompensated CHF/cardiomyopathy as well as bilateral pulmonary embolism.
-Current respiratory status stable saturating at 99% on room air.
-Continue IV diuresis.
-Continue Eliquis.
-Continue physical therapy.
-Continue IV antibiotics to complete course for infective endocarditis.
Bilateral Pleural Effusion secondary to Acute Heart Failure
-Not in acute distress.
-Fluid overload consistent with anasarca marked weight gain last month.
-S/p left thoracocentesis 07/07/2023 with transudative effusion (right-sided thoracentesis with 500 cc)..
-Fluid analysis looks to be transudative.
-Follow-up chest ultrasound: Small bilateral pleural effusions, right greater than left.
-Follow-up chest x-ray: No pneumothorax, stable cardiomediastinal silhouette.
-Continue Aldactone 12.5 mg daily.�
-Consider switching to Lasix 40 mg daily in a.m. given patient's bilateral interstitial pulmonary edema.
-Monitor Is&Os and Daily Weight.
Bilateral Pulmonary Emboli
-Lower extremity Doppler negative for DVT.
-CT head 06/17 with probable infective of acute to subacute infarcts. Unable to get MRI due to patient's claustrophobia.
-Recent embolic CVA in the settings of endocarditis with right hemiparesis.
-Unable to obtain MRI due to patient's claustrophobia.
-Continue Eliquis..
-Repeated echocardiogram with normal left ventricular chamber size and left ventricular ejection fraction 40 to 45%
-Cardiology following.
Infective Endocarditis
-Continue Ancef as prior to admission/through July 21 to complete course for infective endocarditis.
-Consider infectious disease input early next week.
Embolic CVA with Right Hemiparesis
-CT head 06/17 as above
-Consider neurology evaluation.
-Continue PT/OT.
-Continue baclofen.
Essential Hypertension
-Continue Coreg and Lisinopril with hold parameters
Diabetes Mellitus, Type II
-HgbA1c 11.3 in May 2023
-Continue Glargine and Novolog
-Monitor sugars and continue coverage insulin
Chronic Anemia
-Check iron studies, vitamin b12 and folate
Anxiety
-Continue alprazolam prn
Yeast appearing rash in the scrotal region
-Local care and nystatin powder
-Scrotal elevation when possible
-Hopefully will improve with diuresis
Code Status: Full Code�
Anticipated Discharge: 24 - 48 hours
Subjective/Interval History
-
Date of Service: July 11, 2023
Objective Data
-
Labs:
Laboratory Results
07/11/23
04:51
WBC 5.0
Hgb 7.9 L
Hct 24.4 L
Plt Count 153
APTT 53.6 H
Sodium 136
Potassium 4.0
Chloride 96 L
Carbon Dioxide 33 H
BUN 28 H
Creatinine 1.2
Glucose 108 H
Calcium 8.7
Vital Signs:
Vital Signs
Temp Pulse Resp BP Pulse Ox
97.9 F 86 16 133/87 99
07/11/23 11:53 07/11/23 12:26 07/11/23 11:53 07/11/23 12:26 07/11/23 11:53
I&O
07/10/23 07/11/23 07/12/23
06:59 06:59 06:59
Intake Total 360 / 360
Output Total 2700 / 2700 2200 / 2200
Balance -2700 / -2700 -1840 / -1840
Review of Systems
-
History Source: Patient
All other systems: Not reviewed unless documented
Constitutional: Reports Weight Gain and Fatigue
EENT: Reports No Symptoms Reported
Respiratory: Denies Cough, Trouble Breathing (Improved) or Wheezing
Cardiac: Reports No Symptoms; Denies Chest Pain or Palpitations
Abdomen/GI: Reports Abdominal Pain
Genitourinary: Reports No Symptoms
Musculoskeletal: Reports No Symptoms
Skin: Reports No Symptoms
Physical Exam
-
General: Well Developed and No Apparent Distress
HEENT: Normocephalic, Atraumatic and Moist Mucous Membranes
Respiratory: Clear to Auscultation
Cardiac: Regular Rhythm and S1/S2; Negative Murmur, Rub or Gallop
GI: Soft, Nontender, Nondistended and Normal Bowel Sounds; Negative Organomegaly
Rectal: Deferred by Provider
Musculoskeletal: No Clubbing, No Cyanosis and No Edema
Skin: Warm and Dry; Negative Rash
Neuro: Awake, Alert, Oriented, AO x 3 and Other (Right upper extremity weakness)
Data Reviewed
-
Diagnostic Radiology: Image personally visualized and interpreted, Report Reviewed by me and Discussed with Physician
CT Scan: Image personally visualized and interpreted, Report Reviewed by me and Discussed with Physician
Ultrasound: Image personally visualized and interpreted, Report Reviewed by me and Discussed with Physician
Labs: Labs Reviewed by me and Discussed with Physician
Old Records: Reviewed
--- NOTE | 2023-07-11 16:43 | CM ---
Patient is for possible discharge to home tomorrow, patient will return to home with [facility], Sophie from [facility] will be out tomorrow to provide teaching for the 2pm session. Patient will be set up with [facility] visiting nurses,
patint has been provided with a commode and walker, script obtained from physician and provided to physical therapy, patient to follow up with the [facility] Outpatient Stroke Program, which will start 07/18 on Sun in [place], [address] [place] [address], [address], family program specialist Lori [phone], 07/18 at 12:30-4pm, then Sun 1-4pm, and Fri 12-3pm.
Plan; Home with [facility] infusion and [facility] nurses.
[2023-07-11 17:00] LABS: Glucose - Point of Care 84 mg/dl (70-99)
[2023-07-11] MEDS: TYLENOL 1000 MG PO (17:53)
[2023-07-11] MEDS: COREG PO (20:10)
[2023-07-11] MEDS: LIORESAL 5 MG PO (22:00)
[2023-07-11 22:33] LABS: Glucose - Point of Care 84 mg/dl (70-99)
[2023-07-11 23:18] VITALS: BP 127/86
[2023-07-12] MEDS: TYLENOL 1000 MG PO (02:46)
[2023-07-12] MEDS: XANAX 0.25 MG PO (02:47)
[2023-07-12 05:31] LABS: Glucose - Point of Care 94 mg/dl (70-99)
[2023-07-12 05:35] VITALS: BMI 35.1
[2023-07-12] MEDS: ANCEF 10 IV ×2 (05:46→13:55)
[2023-07-12 07:30] VITALS: BP 160/102
[2023-07-12 07:35] LABS: Glucose - Point of Care 102 mg/dl (70-99)
[2023-07-12] MEDS: NOVOLOG FLEXPEN-LOW RESISTANCE SC (08:37)
[2023-07-12] MEDS: NOVOLOG FLEXPEN 5 UNITS SC ×2 (08:37→12:32)
[2023-07-12] MEDS: FEOSOL 325 MG PO (08:38)
[2023-07-12] MEDS: FLORASTOR 250 MG PO (08:38)
[2023-07-12] MEDS: ZESTRIL 5 MG PO (08:38)
[2023-07-12] MEDS: COREG 6.25 MG PO (08:38)
[2023-07-12] MEDS: LIDOCAINE 4% PATCH 2 PATCH TOPICAL (08:38)
[2023-07-12] MEDS: PEPCID 20 MG PO (08:38)
[2023-07-12] MEDS: MAGNESIUM OXIDE 500 MG PO (08:38)
[2023-07-12] MEDS: ELIQUIS 10 MG PO (08:39)
[2023-07-12] MEDS: ALDACTONE 12.5 MG PO (08:39)
[2023-07-12] MEDS: LASIX 40 MG PO (08:39)
[2023-07-12] MEDS: DESENEX/MITRAZOL/ZEASORB 1 APPLIC TOPICAL (08:40)
[2023-07-12] MEDS: SENOKOT-S PO (08:51)
[2023-07-12] MEDS: LANTUS 0.25 UNITS SC (08:51)
--- NOTE | 2023-07-12 08:54 | W.PN.CARDCBS ---
Addendum entered and electronically signed by [facility] Meneses DO 07/12/23 11:29:
I saw and examined the patient.
The Control Systems Specialist's note was reviewed and I agree with the note.
Comment: Seen and examined ambulating around room after working with PT. Denies shortness of breath, chest pain, dizziness. Overall reports improved edema. Completed inpatient [place] [facility]hab stay with plan for outpatient [facility] PT
GEN: NAD, AAOx3
HEENT: mmm
LUNGS: CTA b/l, no wheezes/rales
CV: Reg, S1/S2, 1/6 syst murmur
ABD: soft, BS+, NT/ND
EXT: + LE edema
NEURO: right sided weakness; ambulating with a walker
Plan:
Medically complex 52-year-old gentleman with recent prolonged hospitalization done at [place] June 03-2023 with change in mental status, COVID-19 positive complicated by DKA and UTI requiring intubation. Following extubation 06/05/23 he was
noted to have right-sided weakness and dysarthria. Stat CT head showed acute or subacute infarct involving right cerebellum with 2 separate areas of hypodensity. Neurovascular surgery was consulted and strokes were thought to be embolic. MRI
showed multiple areas of restricted diffusion associated with diminished signal involving both cerebellar hemispheres, right occipital lobe, right temporal lobe, and multiple foci in both frontal lobes. MRA of the head and neck were unremarkable.
Transthoracic echocardiogram reported EF 20-25% with no vegetation however transesophageal echocardiogram reportedly showed EF 40-45% with a aortic valve vegetation 3.2X 2.9 mm attached to the anterior leaflet of a bicuspid aortic valve [right and
left leaflet fusion]. No atrial arrhythmias were reported on discharge summary however he had a 5 to 7 minutes of sustained VT on 06 04 briefly on amiodarone which was stopped May. Per notes cardiology felt it was regularly related to
acute illness and no need for continued antiarrhythmics; placed on low-dose metoprolol. CT surgery was also consulted with no indication for surgery. ID also followed patient and recommended IV cefazolin for 6 weeks end date 07/17/2023. He was
discharged to [place] [facility] at [facility] with plans for outpatient cardiology, endocrine, neurovascular and ID follow-up. He was transferred to [facility] from [facility] 07/07/23 for acute shortness of breath found to have bilateral pulmonary
embolism with bilateral right greater than left pleural effusion status post left thoracentesis 07/07/2023 with transudative effusion. proBNP was greater than 5000.
-Hemodynamically stable with improved volume status after IV diuresis
-Transitioned to PO lasix 40mg daily this AM.�
-Weight is down at least 13lbs this admission, down to 251 lbs on 07/12.
-Echo from 07/09/23 as noted above EF 40-45% with mild . Personally reviewed echocardiogram and cannot exclude bicuspid aortic valve. No definite vegetation noted. No significant aortic regurgitation.
-Continue Coreg, Lisinopril, and spironolactone. If able we will transition lisinopril to Entresto as an outpatient
-Given recent DKA we will hold off Farxiga until seen by endocrine as an outpatient
-Repeat echocardiogram in 3 months on optimal medical therapy
-Bilateral PE by CT scan 07/07/2023 with bilateral pleural effusion status post left thoracentesis 07/07/2023
-Recent COVID-pneumonia May 2023 requiring intubation
-Pulmonary consult reviewed: transitioned to Eliquis for anticoagulation for PE on 07/10.
-Outpatient pulmonary follow-up advised
-Outpatient hematology consultation advised
-Recent embolic CVAs felt to be related to aortic valve endocarditis in May 2023 at [place] with residual right hemiparesis
-Discharge summary from [facility] reviewed
-Encouraged outpatient follow-up with neurosurgery and ID
-IV antibiotics as previously recommended
-Outpatient PT planned
Type 2 diabetes mellitus status post recent DKA
-Outpatient endocrine follow-up advised
-Patient was indicated he would like to follow-up with [facility] and outpatient follow-up will be arranged
-From cardiovascular perspective stable and may be discharged once medically cleared
Original Note:
Today's Communication / Plan
-
Transitioned to PO lasix 40mg daily this AM
Continue coreg, lisinopril, spironolactone
Continue Eliquis for PE
Follow up arranged w/ [facility]
Impression / Plan
-
PCP: None
Toll Bridge Operator: None, saw cardiology at [facility] but does not recall name
Impression:
Presented 07/07/2023 with SOB
Bilateral pulmonary emboli by CT scan 07/07/2023
Acute on chronic HFrEF, proBNP 5410
Bilateral pleural effusions
s/p LEFT thoracentesis 07/07/23 with transudative effusion
Anemia
Infective endocarditis treated at [facility], now on cefazolin
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
diabetes with recent diabetic ketoacidosis
Hypertension
Morbid obesity
Right upper extremity superficial thrombophlebitis related to PICC line 2023
Anemia
Echo 07/09/2023: EF 40 to 45%, global hypokinesis, mild concentric LVH. Mild aortic stenosis peak/mean gradient 20/13 mmHg with MADI 1.1 cm�. Ascending aorta dilation.
Plan:
-Presented 07/07/2023 with worsening SOB. Noted to have bilateral pulmonary emboli on Chest CT.
-Transitioned to Eliquis for anticoagulation for PE on 07/10.
-Volume status improved. Transitioned to PO lasix 40mg daily this AM.
-Weight is down at least 13lbs this admission, down to 251 lbs on 07/12.
-Echo from 07/09/23 as noted above EF 40-45% with mild .
-Continue Coreg, Lisinopril, and spironolactone.
-Neurology recommended MRI given recent embolic strokes but pt unable to lie in MRI machine due to claustrophobia.
-Follow up w/ [facility] arranged.
Admit HPI data 07/07/2023: 52-year-old man who was hospitalized at [facility] with infective endocarditis at the end of 2022 or beginning of 2023.� In this setting he had a stroke with right hemiparesis and was admitted [facility] on June 21 with progressive weakness fatigue and orthostasis in the setting of diarrhea.� He was transferred to [place] on June 26 and is readmitted now with heart failure.� Now found to have a pulmonary embolus, small
bilateral
Progress Note - Toll Bridge Operator
Subjective
Date of Service: July 12, 2023
No complaints, feeling well.
Objective
Labs:
07/11/23 04:51
07/11/23 04:51
Labs
Hgb 7.9 g/dL (13.0-18.0) L 07/11/23 04:51
Hct 24.4 % (39.0-52.0) L 07/11/23 04:51
Plt Count 153 10^3/uL (130-400) 07/11/23 04:51
PT 15.5 Sec (11.4-14.6) H 07/07/23 14:48
INR 1.25 07/07/23 14:48
APTT 53.6 Sec (23.4-35.0) H 07/11/23 04:51
Sodium 136 mmol/L (135-145) 07/11/23 04:51
Potassium 4.0 mmol/L (3.5-5.1) 07/11/23 04:51
BUN 28 mg/dl (9-20) H 07/11/23 04:51
Creatinine 1.2 mg/dL (0.7-1.3) 07/11/23 04:51
Glucose 108 mg/dl (70-99) H 07/11/23 04:51
Troponins
07/10/23
04:36
Troponin I 0.019
Vital Signs and I&O:
Vital Signs
Temp Pulse Resp BP Pulse Ox
97.5 F 82 24 160/102 100
07/12/23 07:30 07/12/23 08:38 07/12/23 07:30 07/12/23 08:38 07/12/23 07:30
Vital Signs
Temp Pulse Resp BP Pulse Ox
97.5 F 82 24 160/102 100
07/12/23 07:30 07/12/23 08:38 07/12/23 07:30 07/12/23 08:38 07/12/23 07:30
Intake & Output
07/10/23 07/11/23 07/12/23 07/13/23
06:59 06:59 06:59 06:59
Intake Total 360 / 360 1320 / 1320
Output Total 2700 / 2700 2200 / 2200 700 / 700
Balance -2700 / -2700 -1840 / -1840 620 / 620
Physical Exam
Physical Exam
GEN: No distress, awake, alert, oriented x3
HEENT: supple, anicteric, mmm
LUNGS: CTA b/l, no wheezes/rales
CV: Reg, S1/S2, 1/6 syst murmur
ABD: soft, BS+, NT/ND
EXT: Trace LE edema
NEURO: right sided weakness
SKIN: warm, dry, no rash
[2023-07-12 12:03] LABS: Glucose - Point of Care 187 mg/dl (70-99)
[2023-07-12] MEDS: NOVOLOG FLEXPEN-LOW RESISTANCE 1 UNITS SC (12:32)
--- NOTE | 2023-07-12 13:20 | CM ---
cleaning manager reviewed patient's chart and faxed over clinical notes and per infusion company they need a physician to follow with patient and PCP will not follow home IV ABX, showcase maker reached out to Dr Vee at [facility] and his office
will reach out to physician and check end date for IV ABX. patient has been set up with [facility] and [facility] outpatient program.
Plan; Home with [facility] infusion and [facility] visiting nurses.
[facility] [phone]
[2023-07-12] MEDS: FLUSH (NSS) 2 FLUSH IV (13:55)
--- NOTE | 2023-07-12 14:47 | W.DS.TRANS ---
DC Summary - Motorcycle Deliverer
-
Discharge Instructions:
Discharge Diagnosis/Procedures Impression:
Acute hypoxic respiratory insufficiency.
Acute on chronic CHF reduced EF.
Left pleural effusion. Plan�status post
thoracentesis 2/10 500 mL.
Acute bilateral pulmonary embolism.
Conditions prior to admission:
Infective endocarditis treated at [facility] with
cefazolin.
Cardioembolic stroke secondary to endocarditis
with right hemiparesis.
IDDM with recent DKA.
Essential hypertension baseline morbid obesity
BMI of 36.
Right upper extremity superficial
thrombophlebitis to peak
2023.
Anemia of chronic disease.
Diet Diabetic, Carb Controlled
Instructions: *PCP/Other Sustainability Communicator Heart Failure Instructions
Stand-Alone Forms:
Changes to Home Medications: Yes
Discharge Medications:
DC Medications w/original date entered in [employer]
cefazolin 2 gram/100 mL in 0.9 % sodium chloride intravenous solution 100 ml IV Q8H Infection 06/21/23
Saccharomyces boulardii 250 mg capsule 250 mg PO DAILY #30 caps 07/12/23
alprazolam 0.25 mg tablet 0.25 mg PO Q8HPRN PRN anxiety #20 tabs 07/12/23
apixaban 5 mg tablet (Eliquis) 10 mg PO BID #60 tabs 07/12/23
baclofen 5 mg tablet 5 mg PO HS Muscle Spasms #30 tabs 07/12/23
bisacodyl 10 mg rectal suppository 10 mg MI DAILYPRN PRN if no results for MOM #30 ea 07/12/23
blood sugar diagnostic (Accu-Chek Guide test strips) #200 ea 07/12/23
blood-glucose meter (Accu-Chek Guide Glucose Meter) #1 ea 07/12/23
carvedilol 6.25 mg tablet 6.25 mg PO BID #60 tabs 07/12/23
docusate sodium 100 mg capsule (Colace) 100 mg PO BID Constipation #30 caps 07/12/23
famotidine 20 mg tablet 20 mg PO BID #60 tabs 07/12/23
furosemide 40 mg tablet 40 mg PO DAILY #30 tabs 07/12/23
insulin aspart U-100 100 unit/mL (3 mL) subcutaneous pen (Novolog FlexPen U-100 Insulin aspart) 5 unit (0.05 mL) SC AC #5 ea 07/12/23
insulin degludec 100 unit/mL (3 mL) subcutaneous pen (Tresiba FlexTouch U-100 insulin) 25 unit (0.25 mL) SC HS #15 mL 07/12/23
insulin syringe-needle U-100 1 mL 29 gauge x 1/2' (Insulin Syringe) #100 ea 07/12/23
lancets (Accu-Chek Softclix Lancets) #200 ea 07/12/23
lisinopril 5 mg tablet 5 mg PO DAILY #30 tabs 07/12/23
spironolactone 25 mg tablet 12.5 mg PO DAILY #30 tabs 07/12/23
Home Medication Changes
All of above
Pending Results: No
--- NOTE | 2023-07-12 15:10 | PN.DE ---
Diabetes Education
- -
07/12/2023: Diabetes Education
Diabetes Education-
This is 52-year-old gentleman with recent prolonged hospitalization done at [facility] June 03-2023 with change in mental status, COVID-19 positive complicated by DKA and UTI requiring intubation and acute CVA. PMH includes: T2DM diagnosis, A1C
of 11.3%
Met with Mr. Puga and his family -Patricia and Dad at bedside for monitor and insulin instructions. He has been provided with the Contour Next Ez glucometer. Reviewed proper testing technique for obtaining a blood glucose, new testing pattern
given ACHS and expected results as noted in take home education booklet. Discussed action of both rapid acting and long acting insulins as well as symptoms and treatment of hypoglycemia. Aware for meals to check blood glucose, inject NovoLog (short
acting insulin) in stomach and eat in 10-20 minutes and Long acting insulin in outer thigh, rotating sites. Aware to store insulin pens that are not in use in the refrigerator. Instructions with poor return demonstration due to residual deficits
using the glucometer noted and result of 90 mg/dl 2 hrs after lunch. Discussed importance of checking blood sugars 4x/day to assess food/medication effect on his BS, reducing CHO intake, being active and losing weight. Provided information and
handout on outpt education classes.
Added RX for test strips and lancets for the Contour Next Ez glucometer, testing 4x/day, to discharge orders.
All questions and concerns were addressed and answered to their satisfaction.
--- NOTE | 2023-07-12 16:21 | PTCARENOTE ---
Discharge instructions given to pt, father and ex . All questions answered.
== END 2023-07-12 16:25 | disposition home health service (06) | DRG 175 ==
LOC: 4 WEST ACU 14:38
PROVIDERS: Nurse Practitioner Family; Physician Assistant Medical; Radiology Diagnostic Radiology; ADMITTING PHYSICIAN Internal Medicine; ATTENDING PHYSICIAN Internal Medicine; CONSULT PHYSICIAN Internal Medicine Cardiovascular Disease; CONSULT PHYSICIAN Internal Medicine Critical Care Medicine; CONSULT PHYSICIAN Psychiatry & Neurology Neurology; EMERGENCY PHYSICIAN Emergency Medicine
PROC: 0W9B3ZX Drainage of Left Pleural Cavity, Percutaneous Approach, Diagnostic (ICD-10-PCS; 2023-07-07)
DX: I26.99 Other pulmonary embolism without acute cor pulmonale (principal); I33.0 Acute and subacute infective endocarditis; I50.23 Acute on chronic systolic (congestive) heart failure; I63.40 Cerebral infarction due to embolism of unspecified cerebral artery; I69.351 Hemiplegia and hemiparesis following cerebral infarction affecting right dominant side; E87.1 Hypo-osmolality and hyponatremia; I31.39 Other pericardial effusion (noninflammatory); E87.3 Alkalosis; I11.0 Hypertensive heart disease with heart failure; Z74.01 Bed confinement status; K59.09 Other constipation; E11.9 Type 2 diabetes mellitus without complications; Z87.891 Personal history of nicotine dependence; E66.01 Morbid (severe) obesity due to excess calories; Z68.35 Body mass index [BMI] 35.0-35.9, adult; D63.8 Anemia in other chronic diseases classified elsewhere; F41.9 Anxiety disorder, unspecified; Y84.8 Other medical procedures as the cause of abnormal reaction of the patient, or of later complication, without mention of misadventure at the time of the procedure; I80.8 Phlebitis and thrombophlebitis of other sites; R06.89 Other abnormalities of breathing; Z11.52 Encounter for screening for COVID-19
CPT/HCPCS: 32555; 36600; 71045; 71046; 76604; 80048; 82150; 82805; 82945; 82962; 83615; 83735; 83880; 83986; 84145; 84155; 84157; 84439; 84443; 84478; 84484; 85025; 85027; 85610; 85730; 87015; 87070; 87205; 87811; 89051; 93005; 93306; 93970; 94640; 96365; 96366; 96375; 97162; 97166; 97530; 99285